=== PATIENT | female | born 1965 | race Asian ===

== ENCOUNTER 2020-04-13 13:43 | Inpatient (IN) | payer OTHER, MEDICAID, SELFPAY ==
[~2020-04-13] VITALS: Ht 160 cm; Wt 66.7 kg
[2020-04-13] VITALS (10 sets, daily range): BP systolic 97–148
--- NOTE | 2020-04-13 13:45 | NUR ---
ER Dr. Mast at bedside examining patient.
--- NOTE | 2020-04-13 14:10 | NUR ---
Patient presented to ER C/O fever Patient BIB BLS from home, A&Ox4, skin pink and warm, denies pain, denies N/V/D. Arrived on 15 LPM nonrebreather mask, increased woek of breathing with respirations equal bilat. placed on laborer operator and pulse-ox monitor. Patient states she has hx of CA
[2020-04-13] MEDS ORDERED: ACETAMINOPHEN 500 MG TABLET PO ONE (14:15)
[2020-04-13 14:18] LABS: BASOPHILS # (AUTO) 0.1 K/uL (0.0-0.2); BASOPHILS % (AUTO) 0.6 % (0.0-2.0); EOSINOPHILS # (AUTO) 0.1 K/uL (0.0-0.4); EOSINOPHILS % (AUTO) 0.8 % (0.0-4.0); HEMATOCRIT 36.1 % (36-48); HEMOGLOBIN 11.9 g/dL (12.0-16.0); LYMPHOCYTES # (AUTO) 0.8 K/uL (1.0-5.5); MEAN CORPUSCULAR HEMOGLOBIN 26 pg (27-31); MEAN CORPUSCULAR HGB CONC 33 % (32-36); MEAN CORPUSCULAR VOLUME 78 fL (79.0-98.0); MONOCYTES # (AUTO) 1.1 K/uL (0.0-1.0); MONOCYTES % (AUTO) 11.2 % (1.7-9.3); NEUTROPHILS % (AUTO) 79.4 % (40.0-70.0); PLATELET COUNT (AUTO) 163 K/uL (130-430); RED BLOOD CELL COUNT(AUTO) 4.66 MIL/uL (4.2-6.2); WHITE BLOOD COUNT (AUTO) 10.1 K/uL (4.8-10.8)
[2020-04-13 14:22] LABS: CALCIUM 8.5 mg/dL (8.4-11.0); CREATININE 0.92 mg/dL (0.55-1.30); POTASSIUM 3.2 mmol/L (3.5-5.1)
[2020-04-13 14:29] LABS: ALBUMIN 2.7 g/dL (3.4-4.8); TOTAL BILIRUBIN 1.4 mg/dL (0.0-1.0)
[2020-04-13 14:38] LABS: C-REACTIVE PROTEIN QUANT 12.8 mg/dL (0-0.5)
[2020-04-13 14:57] LABS: CKMB RELATIVE INDEX 0.1 (0.0-2.9); CREATINE KINASE MB 0.3 ng/mL (0-3.6)
[2020-04-13 15:10] LABS: INR 1.1 (0.8-1.2); PROTHROMBIN TIME 10.8 SECS (9.5-12.5)
[2020-04-13] MEDS ORDERED: cefTRIAXone 1 GM IVPB PREMIX 50 ML IV ONE (15:15)
--- NOTE | 2020-04-13 15:16 | NUR ---
RT Bess RT at bedside
[2020-04-13] MEDS ORDERED: POTASSIUM CHLORIDE 10 MEQ TAB.PRT.SR PO ONE (15:30)
--- NOTE | 2020-04-13 15:54 | NUR ---
Patient will be admitted to care of ICU. Admitted to ICU unit. Will go to room 8. Belongings list completed. Complete and up to date summary report printed. SBAR report to be given at bedside with opportunity for questions.
--- NOTE | 2020-04-13 16:10 | NUR ---
Admitted from ER, patient is awake and alert, shortness of breath on exertion noted. On High flow O2 @ 100%/40 L. by Resp. therapist. Denies pain at this time. scope shows Sinus Tachycardia, initial Vital signs checked and recorded. Patient made comfortable.
--- NOTE | 2020-04-13 16:20 | NUR ---
MD CONSULT: DR. ANETA CORNELL CALLED IN, MADE AWARE OF CONSULT, WILL COME AND SEE PATIENT LATER.
--- NOTE | 2020-04-13 16:28 | NUR ---
CONSULT PULMO. CONSULTING MD: DR. CORNELL SPOKE TO: DIALED: [phone] ORDERED BY: DR. GUO
--- NOTE | 2020-04-13 16:30 | NUR ---
CONSULT ID CONSULTING MD: DR. GEE SPOKE TO: ANDREA DIALED: [phone] ORDERED BY: DR. GUO
[2020-04-13 16:36] LABS: BILIRUBIN,URINE NEGATIVE (NEGATIVE); BLOOD, URINE TRACE (NEGATIVE); CLARITY/URINE CLEAR (CLEAR); COLOR,URINE YELLOW (YELLOW); GLUCOSE,URINE NEGATIVE (NEGATIVE); KETONES,URINE NEGATIVE (NEGATIVE); LEUKOCYTE ESTERASE ,URINE NEGATIVE (NEGATIVE); NITRITE, URINE NEGATIVE (NEGATIVE); PH,URINE 6.5 (5.0-8.0); PROTEIN URINE NEGATIVE (NEGATIVE)
[2020-04-13 16:37] LABS: UROBILINOGEN,URINE 0.2 (0.2-1.0)
[2020-04-13 16:39] LABS: BACTERIA,URINE FEW /HPF (None Seen); MUCUS,URINE None Seen /LPF (None Seen); RBC,URINE 0-3 /HPF (0-3); WBC,URINE 0-3 /HPF (0-3)
[2020-04-13] MEDS ORDERED: ALBUTEROL MDI INHALATION 8 GM INH INH SCH (16:45)
[2020-04-13] MEDS ORDERED: FAMOTIDINE 20 MG TABLET PO ONE (17:00)
[2020-04-13] MEDS ORDERED: AZITHROMYCIN 500 MG in NS 250 ML IV ONE (17:00)
--- NOTE | 2020-04-13 17:00 | NUR ---
RN NOTES PATIENT ASSISTED ON PRONE POSITION.
[2020-04-13] MEDS: KCL 20 mEq in NS 1000 mL 1,000 ML IV SCH (18:00)
--- NOTE | 2020-04-13 18:00 | NUR ---
MD VISIT: DR. BRANT GUO HERE TO SEE PATIENT, WITH ORDERS CARRIED OUT.
--- NOTE | 2020-04-13 18:15 | NUR ---
RN NOTES SPOKE TO THE DAUGHTER, UPDATED ON PATIENT PRESENT CONDITION.
[2020-04-13] MEDS ORDERED: DEXAMETHASONE SOD PHOSPHATE 10 MG/ML VIAL IVP ONE (18:30)
--- NOTE | 2020-04-13 18:30 | NUR ---
RN NOTES APPEARS COMFORTABLE, O2 SAT. 95%
[2020-04-13] MEDS ORDERED: ENOXAPARIN SODIUM 40 MG/0.4 ML SYRINGE SUBCUT ONE (18:45)
--- NOTE | 2020-04-13 19:20 | NUR ---
OPENING NOTE Received SBAR report from off coming RN for continuity of care. Pt laying in bed to her left side. Pt on 40 L O2 via high flow NC with 100% FiO2. KCL 20 mEq infusing @ 100 ml/hr. Will continue to monitor and assess.
[2020-04-13] MEDS: ALBUTEROL SULFATE 0.083% 2.5 MG/3 ML VIAL.NEB INH SCH (20:01)
--- NOTE | 2020-04-13 21:00 | NUR ---
Pt laying in bed, resting on her left side. Pt is a/o x 4 and cooperative. Pt denies any pain but endorses SOB. Pt on 40L via high flow NC with 100% FiO2, oxygen saturations sustained in mid to high 80s. Assisted pt to prone position, she tolerated well. Oxygen saturations increased to 90% after proning. KChl 20 mEq infusing @ 100 ml/hr. Call light within reach, bed locked and in lowest position. Will continue to monitor and assess.
--- NOTE | 2020-04-13 21:30 | NUR ---
FAMILY Spoke with pt's and provided updates.
[2020-04-14] VITALS (26 sets, daily range): BP systolic 96–168
--- NOTE | 2020-04-14 00:30 | NUR ---
Pt laying in bed in the prone position and tolerating well, no s/s of distress noted. Pt denies any pain or discomfort. Oxygen saturations above 90% when pt is prone. Pt' s oxygen saturations fall to low 80's when in the supine position and upon exertion when using the bedpan. Call light within reach. Bed locked and in lowest position, safety precautions in place. Will continue to monitor and assess.
[2020-04-14] MEDS: KCL 20 mEq in NS 1000 mL 1,000 ML IV SCH ×3 (02:45→22:56)
[2020-04-14 05:52] LABS: BASOPHILS % (AUTO) 0.5 % (0.0-2.0); HEMOGLOBIN 12.2 g/dL (12.0-16.0); LYMPHOCYTES # (AUTO) 0.6 K/uL (1.0-5.5); LYMPHOCYTES % (AUTO) 6.7 % (20.5-51.5); MEAN CORPUSCULAR HEMOGLOBIN 26 pg (27-31); MEAN CORPUSCULAR HGB CONC 33 % (32-36); MEAN CORPUSCULAR VOLUME 78 fL (79.0-98.0); MONOCYTES # (AUTO) 0.1 K/uL (0.0-1.0); MONOCYTES % (AUTO) 1.5 % (1.7-9.3); NEUTROPHILS # (AUTO) 8.3 K/uL (1.8-7.7); NEUTROPHILS % (AUTO) 91.3 % (40.0-70.0); PLATELET COUNT (AUTO) 180 K/uL (130-430); RED BLOOD CELL COUNT(AUTO) 4.77 MIL/uL (4.2-6.2); RED CELL DISTRIBUTION WIDTH 19.1 % (9.0-15.0); WHITE BLOOD COUNT (AUTO) 9.1 K/uL (4.8-10.8)
[2020-04-14 07:05] LABS: ALBUMIN 2.5 g/dL (3.4-4.8); BILIRUBIN,DIRECT 0.4 mg/dL (0.0-0.3); CALCIUM 8.4 mg/dL (8.4-11.0); CREATININE 0.7 mg/dL (0.55-1.30); THYROID STIMULATING HORMONE 0.79 uIu/mL (0.36-3.74)
--- NOTE | 2020-04-14 07:31 | NUR ---
CLOSING NOTE Endorsed SBAR report to oncoming RN for continuity of care.
--- NOTE | 2020-04-14 07:34 | NUR ---
Opening Note Received report from endorsing RN. Pt AAOx4, states no distress at this time, currently in prone position on high flow O2 40L 80%. IV site intact, patent, no infiltration noted with IVF in place. No other complaints at this time.
[2020-04-14] MEDS: ALBUTEROL SULFATE 0.083% 2.5 MG/3 ML VIAL.NEB INH SCH ×4 (07:43→20:25)
--- NOTE | 2020-04-14 07:43 | NUR ---
RT NOTES Pt is currently on prone position, titrated o2 to 80% 30L. No adverse reactions noted. will monitor pt. rn made aware
[2020-04-14] MEDS: DEXAMETHASONE SOD PHOSPHATE 10 MG/ML VIAL IVP SCH (08:14)
[2020-04-14] MEDS: ENOXAPARIN SODIUM 40 MG/0.4 ML SYRINGE SUBCUT SCH (08:15)
[2020-04-14 08:19] LABS: C-REACTIVE PROTEIN QUANT 16.7 mg/dL (0-0.5)
--- NOTE | 2020-04-14 08:45 | NUR ---
Nutrition Update Jamal scale 17 noted. Pt admitted for Acute respiratory failure, possible PNA Diet: Full Liquid Diet BMI: 26.2 kg/m2 RD to follow per nutrition care standards.
--- NOTE | 2020-04-14 08:55 | NUR ---
RT NOTES Pt on supine position due to echo study, saturation in the low 60s, rn increased o2 to 100% 40L, minimal improvement noted.
[2020-04-14] MEDS: FAMOTIDINE 20 MG TABLET PO SCH (09:00)
--- NOTE | 2020-04-14 09:00 | NUR ---
Echo being done at bedside.
--- NOTE | 2020-04-14 10:00 | NUR ---
Abdominal ultrasound being done at bedside.
--- NOTE | 2020-04-14 11:40 | NUR ---
RT NOTES Assisted in proning pt, improvement on pt's saturation noted.
--- NOTE | 2020-04-14 12:00 | NUR ---
OSMAN CATH: Pt agreeable to having catheter insertion. # 16 FR Osman catheter with 10 cc bulb inserted with use of sterile technique. Bulb inflated with 10 cc sterile water. Immediate return of yellow/sid urine noted. Bedside drainage bag placed below level of bladder. Pt tolerated procedure well.
--- NOTE | 2020-04-14 14:05 | NUR ---
RT NOTES Pt laying on her right side, with saturation 91%
[2020-04-14] MEDS: AZITHROMYCIN 500 MG in NS 250 ML IV SCH (15:51)
[2020-04-14] MEDS ORDERED: cefTRIAXone 1 GM in D5W 50 ML IV SCH (16:00)
--- NOTE | 2020-04-14 19:04 | NUR ---
Closing Pt currently laying on side. Informed pt to focus on breathing since she was desaturating and cannot tolerate sitting up to have fluids. No other complaints at this time. Endorsed plan of care to RN.
--- NOTE | 2020-04-14 21:45 | NUR ---
PAGED FOR ORDERS DIALED: [phone] SPOKE TO: DR. CORNELL
--- NOTE | 2020-04-14 22:10 | NUR ---
ER MD 2 RTS 2RNS IN PTS RM TO BE INTUBATED DIFFICULTY BREATHING SATS DROPPING PT INTUBATED 7.5 ETT 25 AT THE LIP PT SEDATED WITH ROCURONIUM IV AND ETOMIDATE IV BEFORE INTUBATED SEDATION EFFECTIVE
[2020-04-14] MEDS ORDERED: NOREPINEPHRINE BITARTRATE 4 MG in NS 246 ML IV PRN (22:45)
[2020-04-14] MEDS ORDERED: PROPOFOL DRIP 100 ML IV ONE (22:48)
--- NOTE | 2020-04-14 22:50 | NUR ---
I PAD SET UP FOR FAMILY TO SEEPT INPTS RM FAMILY ADVISED OF INTUBATION AND GAVE PERMISSION FOR PICC LINE INSERTION
[2020-04-14] MEDS: PIPERACILLIN/TAZO 4.5GM/DEX-IS 100 ML IV SCH (22:54)
--- NOTE | 2020-04-14 23:28 | NUR ---
VENT SETTINGS TV 400 FIO2 90% PEEP10 PRVC 28
[2020-04-15] VITALS (30 sets, daily range): BP systolic 97–155
[2020-04-15] MEDS: PROPOFOL DRIP 100 ML IV PRN ×3 (00:49→16:31)
--- NOTE | 2020-04-15 01:10 | NUR ---
RT TO CHECK PT AND VENT
--- NOTE | 2020-04-15 02:30 | NUR ---
CHG RN INCREASED DIPROVAN TO 20 MCG/KG/MIN
--- NOTE | 2020-04-15 04:00 | NUR ---
pt repositioned alert follows commands
[2020-04-15] MEDS: PIPERACILLIN/TAZO 4.5GM/DEX-IS 100 ML IV SCH ×3 (06:00→21:22)
[2020-04-15 06:12] LABS: BASOPHILS % (AUTO) 0.1 % (0.0-2.0); HEMATOCRIT 36.9 % (36-48); HEMOGLOBIN 11.9 g/dL (12.0-16.0); LYMPHOCYTES # (AUTO) 0.9 K/uL (1.0-5.5); LYMPHOCYTES % (AUTO) 5.5 % (20.5-51.5); MEAN CORPUSCULAR HEMOGLOBIN 25 pg (27-31); MEAN CORPUSCULAR HGB CONC 32 % (32-36); MEAN CORPUSCULAR VOLUME 78 fL (79.0-98.0); MONOCYTES # (AUTO) 1.3 K/uL (0.0-1.0); NEUTROPHILS # (AUTO) 14.2 K/uL (1.8-7.7); NEUTROPHILS % (AUTO) 86.4 % (40.0-70.0); PLATELET COUNT (AUTO) 243 K/uL (130-430); RED BLOOD CELL COUNT(AUTO) 4.76 MIL/uL (4.2-6.2); RED CELL DISTRIBUTION WIDTH 18.9 % (9.0-15.0); WHITE BLOOD COUNT (AUTO) 16.4 K/uL (4.8-10.8)
--- NOTE | 2020-04-15 06:27 | NUR ---
RT ADVISED FIO2 80%
[2020-04-15 06:42] LABS: ALBUMIN 2.3 g/dL (3.4-4.8); CALCIUM 8.1 mg/dL (8.4-11.0); CREATININE 0.65 mg/dL (0.55-1.30); POTASSIUM 3.9 mmol/L (3.5-5.1); TOTAL BILIRUBIN 1.1 mg/dL (0.0-1.0)
[2020-04-15 06:47] LABS: PROTHROMBIN TIME 10.7 SECS (9.5-12.5)
[2020-04-15 07:06] LABS: HEPATITIS A AB, IgM Negative (Negative); HEPATITIS B CORE AB, IgM Negative (Negative); HEPATITIS B SURFACE AG Negative (Negative)
--- NOTE | 2020-04-15 07:10 | NUR ---
Opening Note Patient report received via SBAR from endorsing RN
[2020-04-15 08:08] LABS: C-REACTIVE PROTEIN QUANT 6.9 mg/dL (0-0.5)
[2020-04-15] MEDS ORDERED: MORPHINE I.V. DRIP 100 ML IV PRN (08:15)
[2020-04-15] MEDS ORDERED: NALOXONE HCL 0.4 MG/ML AMP (NARCAN) IVP PRN (08:15)
[2020-04-15] MEDS: FAMOTIDINE 20 MG TABLET PO SCH (09:00)
[2020-04-15] MEDS: DEXAMETHASONE SOD PHOSPHATE 10 MG/ML VIAL IVP SCH (09:10)
--- NOTE | 2020-04-15 09:15 | NUR ---
HIGH ALERT NOTE: Called Dr. Wong back at [phone] identified within the medical roster to verify physician authenticity.
--- NOTE | 2020-04-15 09:35 | NUR ---
Nursing Note NG insertion attempted in bilateral nares, unable to advance NG tube and patient became tachypneic and began to cough. NG insertion will be attempted again once patient is stable
--- NOTE | 2020-04-15 09:35 | NUR ---
Witnessed diprivan infusing at 25 mcgs/kg/min.
[2020-04-15] MEDS: ENOXAPARIN SODIUM 40 MG/0.4 ML SYRINGE SUBCUT SCH (09:38)
--- NOTE | 2020-04-15 09:40 | NUR ---
Witnessed diprivan infusing at 30 mcgs/kg/min.
--- NOTE | 2020-04-15 10:00 | NUR ---
Witnessed morphine infusing at 2mg/hr
--- NOTE | 2020-04-15 10:25 | NUR ---
Dietitian Recommendations * If/when medically appropriate, consider Vital High Protein at 50 ml/hr (goal rate), Free Water Flush: 150 ml Q6h via NGT Provides: 1200 kcal/day, 105 gm protein/day, and 1603 ml free water/day Meets: 81% of estimated protein needs and 94 of upper end of estimated protein needs LP, RD Please refer to Nutrition Assessment for details. Addendum: 04/15/20 at [address] Amended: Links added. Addendum: 04/15/20 at [address] CORRECTION: 94% of upper end of estimated protein needs
--- NOTE | 2020-04-15 10:30 | NUR ---
Witnessed morphine drup infusing at 2.5mg/hr
--- NOTE | 2020-04-15 11:00 | NUR ---
Witnessed morphine drip infusing at 3 mg/hr
--- NOTE | 2020-04-15 11:05 | NUR ---
Witnessed diprivan infusing at 35 mcgs/kg/min
--- NOTE | 2020-04-15 11:30 | NUR ---
NG TUBE PLACEMENT: # 16 FR NG tube placed to right nare. Placement checked by auscultation of instilled air into stomach and aspiration of gastric contents. Tubing taped in place to prevent dislodging. Patient tolerated well.
[2020-04-15] MEDS ORDERED: ROCURONIUM BROMIDE 10 MG/ML (ZEMURON) IV ONE (11:34)
[2020-04-15] MEDS ORDERED: ETOMIDATE 20 MG/ 10 ML VIAL (AMIDATE) IVP ONE (11:34)
--- NOTE | 2020-04-15 11:40 | NUR ---
MD ROUND Dr. Dawn in to see patient, physician to enter orders
[2020-04-15] MEDS ORDERED: FAMOTIDINE PF 20 MG/2 ML VIAL IVP ONE ×2 (11:45→12:15)
--- NOTE | 2020-04-15 11:50 | NUR ---
Nursing Note Patient's bed connected to low air loss machine and turned on, patient repositioned in bed, linens changed
--- NOTE | 2020-04-15 12:00 | NUR ---
Witnessed diprivan infusing at 35 mcgs/kg/min Addendum: 04/15/20 at 1816 by Jessica Vora RN Witnessed diprivan infusing at 40 mcgs/kg/min
--- NOTE | 2020-04-15 12:40 | NUR ---
MD JACKSON Recinos in to see patient, physician entered orders Addendum: 04/15/20 at 1347 by Jackson Bedolla RN Disregard, entered incorrectly
--- NOTE | 2020-04-15 13:00 | NUR ---
Nursing Note PICC nurse in to see patient, PICC inserted and length adjusted to right upper arm by PICC nurse, okay to use per chest x-ay
--- NOTE | 2020-04-15 13:10 | NUR ---
Witnessed diprivan infusing at 30 mcgs/kg/min
--- NOTE | 2020-04-15 13:20 | NUR ---
ROUND Dr. Wong in to see patient, new orders entered
--- NOTE | 2020-04-15 13:24 | NUR ---
PICC Pull Back Received cxr report from radiologist with orders to pull back PICC. Per Olive, PICC line nurse, she pulled picc back already. Dr. Marvin queen and he looked at cxr and told olive that the line was in good position. No further pull back done.
[2020-04-15 14:32] LABS: FERRITIN 207 ng/mL (15-150)
[2020-04-15] MEDS: AZITHROMYCIN 500 MG in NS 250 ML IV SCH (14:33)
--- NOTE | 2020-04-15 15:00 | NUR ---
Witnessed diprivan infusing at 25 mcgs/kg/min
--- NOTE | 2020-04-15 15:30 | NUR ---
Witnessed diprivan infusing at 20 mcgs/kg/min
--- NOTE | 2020-04-15 16:00 | NUR ---
Witnessed morphine drip infusing at 2.5 mg/hr
[2020-04-15] MEDS: ALBUTEROL SULFATE 0.083% 2.5 MG/3 ML VIAL.NEB INH SCH ×3 (16:30→19:00)
--- NOTE | 2020-04-15 16:30 | NUR ---
Witnessed morphine drip infusing at 2 mg/hr
--- NOTE | 2020-04-15 19:08 | NUR ---
CLOSING NOTE Patient report given to nightshift RN via SBAR
--- NOTE | 2020-04-15 19:30 | NUR ---
Opening note: Report received from day RN. Assuming care now.
[2020-04-15] MEDS: DOCUSATE SODIUM 100 MG/10 ML UDC PO SCH (21:22)
[2020-04-16] VITALS (31 sets, daily range): BP systolic 116–156
[2020-04-16] MEDS: PROPOFOL DRIP 100 ML IV PRN ×2 (06:01→17:20)
[2020-04-16] MEDS: PIPERACILLIN/TAZO 4.5GM/DEX-IS 100 ML IV SCH ×3 (06:05→21:19)
[2020-04-16 06:22] LABS: BASOPHILS % (AUTO) 0.1 % (0.0-2.0); HEMATOCRIT 34.6 % (36-48); HEMOGLOBIN 11.4 g/dL (12.0-16.0); LYMPHOCYTES # (AUTO) 0.9 K/uL (1.0-5.5); LYMPHOCYTES % (AUTO) 8.5 % (20.5-51.5); MEAN CORPUSCULAR HEMOGLOBIN 26 pg (27-31); MEAN CORPUSCULAR HGB CONC 33 % (32-36); MEAN CORPUSCULAR VOLUME 78 fL (79.0-98.0); MONOCYTES # (AUTO) 0.4 K/uL (0.0-1.0); MONOCYTES % (AUTO) 3.8 % (1.7-9.3); NEUTROPHILS # (AUTO) 9.1 K/uL (1.8-7.7); NEUTROPHILS % (AUTO) 87.6 % (40.0-70.0); PLATELET COUNT (AUTO) 214 K/uL (130-430); RED BLOOD CELL COUNT(AUTO) 4.43 MIL/uL (4.2-6.2); WHITE BLOOD COUNT (AUTO) 10.3 K/uL (4.8-10.8)
[2020-04-16 07:01] LABS: ALBUMIN 2.2 g/dL (3.4-4.8); CREATININE 0.66 mg/dL (0.55-1.30); POTASSIUM 3.6 mmol/L (3.5-5.1); TOTAL BILIRUBIN 0.7 mg/dL (0.0-1.0)
[2020-04-16 07:02] LABS: C-REACTIVE PROTEIN QUANT 3.9 mg/dL (0-0.5)
--- NOTE | 2020-04-16 07:30 | NUR ---
Received report for assumption of care. Pt comfortable on PRVC28/400/50%/p10. Diprivan at 20 mcgs and Morphine at 2 mg/hr via LUE PICC. No IVF at this time. NG tube right nare and tolerating tube feeds at 40 cc/hr. No residual. Restraints in use to prevent pt from pulling at ET or NGT. Observed pt to put hand on tubes. Hernandez cath with sid urine in bag. SR on monitor. Pt has a port a a cath to right chest. Pt has a 20g PIV to left AC. Call juarez in reach and pt visable on camera.
[2020-04-16] MEDS: DOCUSATE SODIUM 100 MG/10 ML UDC PO SCH ×2 (09:39→21:18)
[2020-04-16] MEDS: ENOXAPARIN SODIUM 40 MG/0.4 ML SYRINGE SUBCUT SCH (09:39)
[2020-04-16] MEDS: FAMOTIDINE PF 20 MG/2 ML VIAL IVP SCH (09:42)
[2020-04-16] MEDS: DEXAMETHASONE SOD PHOSPHATE 10 MG/ML VIAL IVP SCH (09:43)
--- NOTE | 2020-04-16 10:30 | NUR ---
Pt repositioned in bed to left side with pillow supports. HOB up. Tolerating tube feedings. VSS, SR on monitor.
--- NOTE | 2020-04-16 14:00 | NUR ---
Dr. Dawn in to see pt. Spoke with pts daughter [employer] on the phone. All questions answered.
[2020-04-16] MEDS: AZITHROMYCIN 500 MG in NS 250 ML IV SCH (14:31)
--- NOTE | 2020-04-16 15:07 | NUR ---
Pt transferred to a new low air loss mattress bed. Remains comfortable on Diprivan at 20 mcgs and morphine at 2mg/hr. Tolerating current vent settings without distress.
[2020-04-16] MEDS: ALBUTEROL SULFATE 0.083% 2.5 MG/3 ML VIAL.NEB INH SCH ×3 (15:24→19:46)
--- NOTE | 2020-04-16 16:30 | NUR ---
Dr Wong in to see pt. Vent chagnesmade by him to PRVC 18/500/50%/p8. Will monitor for distress.
--- NOTE | 2020-04-16 19:20 | NUR ---
Report given to oncoming staff to assume care of the pt.
--- NOTE | 2020-04-16 19:30 | NUR ---
Opening note: Report received from previous RN. Assuming care now.
--- NOTE | 2020-04-16 20:35 | NUR ---
RT NOTES [address] Wong, titrate PEEP to 5 as tolerated. Titrated PEEP to 5, pt saturation 95-96%. HR 65. no resp distress noted. pt tolerating vent changes well. RN Alfred aware. will continue to monitor pt.
[2020-04-17] VITALS (33 sets, daily range): BP systolic 84–196
[2020-04-17] MEDS: PROPOFOL DRIP 100 ML IV PRN ×2 (04:32→15:30)
[2020-04-17] MEDS: MORPHINE I.V. DRIP 100 ML IV PRN (04:33)
[2020-04-17] MEDS: PIPERACILLIN/TAZO 4.5GM/DEX-IS 100 ML IV SCH ×3 (06:00→21:23)
--- NOTE | 2020-04-17 06:45 | NUR ---
DRIPS I witnessed Alfred GAGNON change Diprivan drip rate to 5mcg/Kg/min. I witnessed Alfred GAGNON stop Morphine drip.
[2020-04-17 06:59] LABS: BASOPHILS % (AUTO) 0.1 % (0.0-2.0); HEMATOCRIT 35.9 % (36-48); HEMOGLOBIN 11.6 g/dL (12.0-16.0); LYMPHOCYTES # (AUTO) 0.9 K/uL (1.0-5.5); MEAN CORPUSCULAR HEMOGLOBIN 25 pg (27-31); MEAN CORPUSCULAR HGB CONC 32 % (32-36); MEAN CORPUSCULAR VOLUME 78 fL (79.0-98.0); MONOCYTES # (AUTO) 0.6 K/uL (0.0-1.0); MONOCYTES % (AUTO) 5.1 % (1.7-9.3); NEUTROPHILS # (AUTO) 9.8 K/uL (1.8-7.7); NEUTROPHILS % (AUTO) 86.8 % (40.0-70.0); PLATELET COUNT (AUTO) 224 K/uL (130-430); RED BLOOD CELL COUNT(AUTO) 4.62 MIL/uL (4.2-6.2); WHITE BLOOD COUNT (AUTO) 11.3 K/uL (4.8-10.8)
--- NOTE | 2020-04-17 07:20 | NUR ---
Received patient and endorsed report from [facility] shift nurse. Patient in bed sleeping with side rails x 3 up. Call light with in reach.
--- NOTE | 2020-04-17 07:30 | NUR ---
MD Wong at bedside assessing patient.
[2020-04-17 07:45] LABS: ALBUMIN 2.2 g/dL (3.4-4.8); CALCIUM 8.1 mg/dL (8.4-11.0); CREATININE 0.57 mg/dL (0.55-1.30); POTASSIUM 3.5 mmol/L (3.5-5.1); TOTAL BILIRUBIN 0.5 mg/dL (0.0-1.0)
--- NOTE | 2020-04-17 08:00 | NUR ---
Md Wong stated patient started weaning trail. Addendum: 04/17/20 at 0834 by Ju Navarro RN note correction-CPAP of 5, PS of 8.
[2020-04-17 08:12] LABS: C-REACTIVE PROTEIN QUANT 2.3 mg/dL (0-0.5)
[2020-04-17] MEDS: DOCUSATE SODIUM 100 MG/10 ML UDC PO SCH ×2 (08:26→21:23)
--- NOTE | 2020-04-17 08:26 | NUR ---
At approximately 0810, patient sat up, pulled of restraints, and pulled NGT completely out with intubation tube partially out. RT and MD Wong paged to come bedside. MD Wong ordered for patient to try off intubation with 100% oxygen on hi-flow, RT followed orders. Md Wong ordered diprivan to be turned off, follow orders. Educated patient on importance to stay in bed, patient shook head yes. Addendum: 04/17/20 at 0834 by Ju Navarro RN note correction-patient placed on nonrebreather mask 100% 15 liters.
[2020-04-17] MEDS: ALBUTEROL SULFATE 0.083% 2.5 MG/3 ML VIAL.NEB INH SCH ×3 (08:27→15:53)
--- NOTE | 2020-04-17 08:27 | NUR ---
RT NOTES FOUND PATIENT SELF EXTUBATED RN AT BEDSIDE. PLACED ON NON REBREATHER PATIENT DENIED SOB. NO STRIDOR NOTED. NO DISTRESS NOTED. HHN GIVEN WILL CONTINUE TO MONITOR PATIENT. DR CORNELL AT BEDSIDE.
[2020-04-17] MEDS: DEXAMETHASONE SOD PHOSPHATE 10 MG/ML VIAL IVP SCH (09:45)
[2020-04-17] MEDS: FAMOTIDINE PF 20 MG/2 ML VIAL IVP SCH (09:45)
[2020-04-17] MEDS: ENOXAPARIN SODIUM 40 MG/0.4 ML SYRINGE SUBCUT SCH (09:45)
--- NOTE | 2020-04-17 10:20 | NUR ---
Patient stated wants to be reintubated again even with 02 saturation at 97 with respirations of 28, RT at bedside and MD Wong paged.
--- NOTE | 2020-04-17 10:30 | NUR ---
RT NOTES PATIENT WAS RE-INTUBATED BY DR. CORNELL. WITH 7.5 ETT SECURED AT 25cm AT THE LIP. BILATERAL BREATH SOUNDS AND BILATERAL CHEST RISE NOTED. CO2 DETECTOR CHANGED YELLOW. MIST NOTED ON ETT. PLACED PATIENT BACK ON VENT PRVC 18 400 100% +5. PER DR. CORNELL. VENT ALARMS ARE SET AND AUDIBLE. WILL CONTINUE TO MONITOR PATIENT. WILL DRAW ABG. SPUTUM COLLECTED ENDORSED TO LAB.
--- NOTE | 2020-04-17 10:35 | NUR ---
Witnessed RN titrate diprivan to 10 mcg.
--- NOTE | 2020-04-17 10:40 | NUR ---
Witnessed RN titrate diprivan to 15 mcg.
--- NOTE | 2020-04-17 10:45 | NUR ---
Witnessed RN titrate diprivan to 20 mcg.
--- NOTE | 2020-04-17 10:50 | NUR ---
Witnessed RN titrate diprivan to 25 mcg.
--- NOTE | 2020-04-17 11:00 | NUR ---
Witnessed RN titrate Morphine to 1.5mg.
--- NOTE | 2020-04-17 11:18 | NUR ---
At approximately 1030, patient was reintubated with MD Wong and RT at bedside after 50 mg Rocuronium was given IVP as ordered by MD Wong. Md Wong ordered patient to be placed back on Morphine and Diprivan drip, restraints may be renewed, NGT may be placed back in. Placed NGT back. X-ray performed. Intubation tube size 7.5 with Lipline 25. Addendum: 04/17/20 at 1129 by Ju Navarro RN EXTRA NOTE-Vent settings PRVC rate of 18, TV of 400, 100% Fi02, peep of 5.
--- NOTE | 2020-04-17 11:26 | NUR ---
Updated daughter Rocio Chan and on reintubation of patient, requested to face time mom. Scheduled facetime at 1500.
--- NOTE | 2020-04-17 11:30 | NUR ---
Witnessed RN titrate Morphine to 2 mg.
[2020-04-17] MEDS ORDERED: ROCURONIUM BROMIDE 10 MG/ML (ZEMURON) IV ONE (12:02)
[2020-04-17] MEDS: AZITHROMYCIN 500 MG in NS 250 ML IV SCH (14:00)
--- NOTE | 2020-04-17 16:30 | NUR ---
Daughter Rocio Chan and on face time with patient.
--- NOTE | 2020-04-17 17:00 | NUR ---
Nutrition F/U RD reviewed pt's current EMR record including diet Hx, physician notes, nursing notes, pertinent labs/meds/procedures, care trends, and care activity. Admission Dx: Acute respiratory failure, possible pneumonia PMH: stage 4 metastatic breast CA per physician notes Pt also found w/ severe malnutrition per physician notes SARS-CoV-2 Ag (Rapid) Negative 04/13 SARS-CoV2 (PCR) Pending 04/13 & 04/15 Current Diet Order/Nutrition Support: Vital High Protein at 50 ml/hr, Free Water Flush: 150 ml Q6h via NGT x2 days Subjective Info: RD bedside visit deferred d/t isolation precautions and PPE conservation efforts. RD spoke w/ pt's primary RN via phone call. RN reported that pt's OGT was re-inserted today as pt self-extubated this morning, but was re-intubated and back on the vent. RN reported that pt has been tolerating TF well, and has not yet had a BM today. Current TF regimen continues adequate/appropriate. Pertinent Medications: morphine, propofol at 8.05 ml/hr (231 kcal/day), piperacillin/tazobactam IV Pertinent Labs: BG 116 H, WBC 11.3 H, AST 72 H, ALT 70 WNL (improved), ALP 250 H, ALB 2.2 L Skin Integrity Comment: Jamal scale: 14; no skin issues noted Estimated Energy Expenditure (kcals/day) 1489 kcal/day (PSU 2002b d/t critical illness on vent support) Estimated Protein Required (g/day) 67-112 gm/day (1.2-2 gm/kg Adj IBW for CA, acute state, vent support) Estimated Fluid Required (l/day) 1.5 L/day (1 ml/kcal/day for maintenance) Problem/Etiology/Signs/Symptoms Suboptimal nutritional intakes related to metabolic demands as evidenced by NPO status and inability to meet nutritional requirements. *improved w/ active EN support order Expected Outcomes/Goals - Monitor provision of nutrition support w/ goal of pt meeting at least 80% of estimated nutritional needs, labs trending WNL, normal GI function, and skin integrity/wt maintenance Dietitian Recommendations * Recommend continuing Vital High Protein at 50 ml/hr, Free Water Flush: 150 ml Q6h via NGT Provides: 1200 kcal/day, 105 gm protein/day, and 1603 ml free water/day Meets: 81% of estimated protein needs and 94% of upper end of estimated protein needs Follow Up High Risk: F/U in 2-3 days
--- NOTE | 2020-04-17 17:05 | NUR ---
Dietitian Recommendations * Recommend continuing Vital High Protein at 50 ml/hr, Free Water Flush: 150 ml Q6h via NGT Provides: 1200 kcal/day, 105 gm protein/day, and 1603 ml free water/day Meets: 81% of estimated protein needs and 94% of upper end of estimated protein needs LP, RD Please refer to Nutrition F/U for details.
--- NOTE | 2020-04-17 19:20 | NUR ---
Endorsed patient to NOC shift nurse. Patient in bed sleeping with side rails x 3 up. Call light with in reach.
--- NOTE | 2020-04-17 19:47 | NUR ---
Opening note: Report received from day RN. Assuming care now.
--- NOTE | 2020-04-17 23:00 | NUR ---
Patient attempting to get out of bed, diprivan increased to 30mcg/kg/min.
--- NOTE | 2020-04-17 23:00 | NUR ---
sandy meyers RN titrate diprivan to 30 mcg/kg/min.
[2020-04-18] VITALS (36 sets, daily range): BP systolic 90–180
[2020-04-18] MEDS: PROPOFOL DRIP 100 ML IV PRN ×3 (05:34→20:03)
[2020-04-18] MEDS: PIPERACILLIN/TAZO 4.5GM/DEX-IS 100 ML IV SCH ×3 (06:25→22:00)
[2020-04-18 06:58] LABS: BASOPHILS % (AUTO) 0.3 % (0.0-2.0); EOSINOPHILS # (AUTO) 0.1 K/uL (0.0-0.4); EOSINOPHILS % (AUTO) 0.8 % (0.0-4.0); HEMATOCRIT 35.6 % (36-48); HEMOGLOBIN 11.3 g/dL (12.0-16.0); LYMPHOCYTES # (AUTO) 1.6 K/uL (1.0-5.5); LYMPHOCYTES % (AUTO) 10.1 % (20.5-51.5); MEAN CORPUSCULAR HEMOGLOBIN 25 pg (27-31); MEAN CORPUSCULAR HGB CONC 32 % (32-36); MEAN CORPUSCULAR VOLUME 78 fL (79.0-98.0); MONOCYTES # (AUTO) 0.9 K/uL (0.0-1.0); MONOCYTES % (AUTO) 5.5 % (1.7-9.3); NEUTROPHILS # (AUTO) 13.1 K/uL (1.8-7.7); NEUTROPHILS % (AUTO) 83.3 % (40.0-70.0); PLATELET COUNT (AUTO) 238 K/uL (130-430); RED BLOOD CELL COUNT(AUTO) 4.55 MIL/uL (4.2-6.2); RED CELL DISTRIBUTION WIDTH 19.7 % (9.0-15.0); WHITE BLOOD COUNT (AUTO) 15.7 K/uL (4.8-10.8)
[2020-04-18 07:09] LABS: ALBUMIN 2.1 g/dL (3.4-4.8); C-REACTIVE PROTEIN QUANT 3.8 mg/dL (0-0.5); CALCIUM 8.4 mg/dL (8.4-11.0); CREATININE 0.59 mg/dL (0.55-1.30); POTASSIUM 3.5 mmol/L (3.5-5.1); TOTAL BILIRUBIN 0.8 mg/dL (0.0-1.0)
--- NOTE | 2020-04-18 07:20 | NUR ---
Patient received from [facility] shift nurse. Patient in bed with side rails x 3 up. Call light with in reach.
[2020-04-18] MEDS: ALBUTEROL SULFATE 0.083% 2.5 MG/3 ML VIAL.NEB INH SCH ×4 (07:45→19:59)
--- NOTE | 2020-04-18 07:54 | NUR ---
RT NOTES Vent settings to PEEP [address] Wong's order. Will monitor pt.
[2020-04-18] MEDS: FAMOTIDINE PF 20 MG/2 ML VIAL IVP SCH (09:23)
[2020-04-18] MEDS: DOCUSATE SODIUM 100 MG/10 ML UDC PO SCH ×2 (09:23→20:04)
[2020-04-18] MEDS: ENOXAPARIN SODIUM 40 MG/0.4 ML SYRINGE SUBCUT SCH (09:24)
[2020-04-18] MEDS: DEXAMETHASONE SOD PHOSPHATE 10 MG/ML VIAL IVP SCH (09:24)
[2020-04-18] MEDS: ACETAMINOPHEN 650 MG SUPP.RECT RC PRN ×2 (09:30→15:30)
[2020-04-18] MEDS: AZITHROMYCIN 500 MG in NS 250 ML IV SCH (13:30)
--- NOTE | 2020-04-18 18:10 | NUR ---
RT NOTES 1810- AM RT PUT PT ON 100% FIO2 DUE TO PT DESATURATION. Addendum: 04/19/20 at 0353 by Carmenza Aparicio RT EMELY TOVAR
--- NOTE | 2020-04-18 19:48 | NUR ---
Endorsed patient and gave report to NOC shift nurse. Patient in bed with side rails x 3 up. Call light with in reach.
--- NOTE | 2020-04-18 19:48 | NUR ---
Pt report received. Pt resting calmly, ETT at 7.5, 25 to lip. Settings: PRVC, 18, 400, 100%, 8. OGT secure with Vital High Protein at 50 mL/hr. LUE PICC with Diprivan at 30 mcg/kg/min and Morphine at 2 mg/hr. F/C secure draining yellow urine. Bilat soft wrist restraints in place. VSS at this time.
--- NOTE | 2020-04-18 20:26 | NUR ---
Pt restless and moving extremities. Bilat soft wrist restraints remain in place. Ativan 1 mg given.
--- NOTE | 2020-04-18 21:04 | NUR ---
PROPOFOL DRIP I witness Ashok RN change Propofol drip rate to 35 mcg/KG/min.
--- NOTE | 2020-04-18 21:45 | NUR ---
MORPHINE DRIP I witnessed Ashok GAGNON change Morphine drip to 2.5mg/HR.
--- NOTE | 2020-04-18 21:45 | NUR ---
NGT partially out. Feeding turned off and NGT repositioned. Placement confirmed with air bolus and auscultation.
--- NOTE | 2020-04-18 21:45 | NUR ---
PROPOFOL DRIP I witness Ashok RN change Propofol drip rate to 40 mcg/KG/min.
--- NOTE | 2020-04-18 22:00 | NUR ---
75 mL residual brown gastric contents. OGT remains secure and feedings resumed at 50 mL/hr.
--- NOTE | 2020-04-18 23:00 | NUR ---
PROPOFOL DRIP I witness Ashok RN change Propofol drip rate to 35 mcg/KG/min.
--- NOTE | 2020-04-18 23:15 | NUR ---
Pts daugter face timing pt.
[2020-04-19] VITALS (36 sets, daily range): BP systolic 81–189
--- NOTE | 2020-04-19 | NUR ---
PROPOFOL DRIP I witness Ashok RN change Propofol drip rate to 30 mcg/KG/min.
--- NOTE | 2020-04-19 01:24 | NUR ---
RT NOTES 0124 DECREASED FIO2 TO 90%, SATURATION AT 99%. HR 71. NO RESP DISTRESS NOTED. RN ESTEPHANIE AWARE. WILL CONTINUE TO MONITOR PT.
--- NOTE | 2020-04-19 03:47 | NUR ---
SPO2 100%. FiO2 decreased to 80% per RT.
--- NOTE | 2020-04-19 03:50 | NUR ---
RT NOTES 0350 TITRATED PT FIO2 TO 80%, SATURATION AT 97%. NO RESP DISTRESS NOTED. HEAD TENNIS COACH BERNADETTE AWARE. WILL CONTINUE TO MONITOR PT.
[2020-04-19] MEDS: PROPOFOL DRIP 100 ML IV PRN ×2 (04:48→22:13)
--- NOTE | 2020-04-19 04:48 | NUR ---
WITNESS KALIN HUMMEL HANG NEW BOTTLE OF PROPOFOL.
--- NOTE | 2020-04-19 06:08 | NUR ---
MORPHINE DRIP I witnessed Ashok GAGNON change Morphine drip to 3mg/HR.
[2020-04-19 06:40] LABS: BASOPHILS # (AUTO) 0.1 K/uL (0.0-0.2); BASOPHILS % (AUTO) 0.5 % (0.0-2.0); EOSINOPHILS # (AUTO) 0.1 K/uL (0.0-0.4); EOSINOPHILS % (AUTO) 0.9 % (0.0-4.0); HEMATOCRIT 33.4 % (36-48); HEMOGLOBIN 10.9 g/dL (12.0-16.0); LYMPHOCYTES # (AUTO) 1.2 K/uL (1.0-5.5); LYMPHOCYTES % (AUTO) 8.4 % (20.5-51.5); MEAN CORPUSCULAR HEMOGLOBIN 26 pg (27-31); MEAN CORPUSCULAR HGB CONC 33 % (32-36); MEAN CORPUSCULAR VOLUME 78 fL (79.0-98.0); MONOCYTES # (AUTO) 0.8 K/uL (0.0-1.0); MONOCYTES % (AUTO) 5.2 % (1.7-9.3); NEUTROPHILS # (AUTO) 12.4 K/uL (1.8-7.7); PLATELET COUNT (AUTO) 250 K/uL (130-430); RED BLOOD CELL COUNT(AUTO) 4.29 MIL/uL (4.2-6.2); RED CELL DISTRIBUTION WIDTH 19.4 % (9.0-15.0); WHITE BLOOD COUNT (AUTO) 14.6 K/uL (4.8-10.8)
--- NOTE | 2020-04-19 07:00 | NUR ---
WITNESSED KALNI HUMMEL HAND A NEW BAG OF MORPHINE.
[2020-04-19] MEDS: MORPHINE I.V. DRIP 100 ML IV PRN (07:15)
[2020-04-19] MEDS: PIPERACILLIN/TAZO 4.5GM/DEX-IS 100 ML IV SCH ×2 (07:17→18:46)
--- NOTE | 2020-04-19 07:25 | NUR ---
Pt report given to KALIN Gutierrez.
[2020-04-19] MEDS: ALBUTEROL SULFATE 0.083% 2.5 MG/3 ML VIAL.NEB INH SCH ×4 (07:30→19:30)
--- NOTE | 2020-04-19 07:30 | NUR ---
Received pt in distress with RR 28 02 sats 80's and HR 101. Diprivan at 35 mcgs and increased to 40 mcgs. Morphine infusing at 3 mg/hr. ET to vent on PRVC 18/400/80%p8. Minimal secretions suctioned from ET or mouth. ST on monitor. Right upper arm PICC with IVF 75cc/hr morphine and diprivan.. NG tube with tube feeds at 50 cc/hr and tolerating. Hernandez with dark sid urine in bag. Restraints in use as pt self extubated a few days ago.
[2020-04-19 07:56] LABS: ALBUMIN 2.1 g/dL (3.4-4.8); CALCIUM 8.1 mg/dL (8.4-11.0); CREATININE 0.54 mg/dL (0.55-1.30); POTASSIUM 3.8 mmol/L (3.5-5.1); TOTAL BILIRUBIN 0.8 mg/dL (0.0-1.0)
[2020-04-19] MEDS: DEXAMETHASONE SOD PHOSPHATE 10 MG/ML VIAL IVP SCH (11:40)
[2020-04-19] MEDS: DOCUSATE SODIUM 100 MG/10 ML UDC PO SCH ×2 (11:40→20:57)
[2020-04-19] MEDS: FAMOTIDINE PF 20 MG/2 ML VIAL IVP SCH (11:40)
[2020-04-19] MEDS: ENOXAPARIN SODIUM 40 MG/0.4 ML SYRINGE SUBCUT SCH (11:41)
[2020-04-19] MEDS ORDERED: NOREPINEPHRINE 4 MG/4 ML VIAL IV ONE (11:46)
--- NOTE | 2020-04-19 13:30 | NUR ---
TITRATED FIO2 DOWN TO 70%. SPO2 97%, HR 83.
--- NOTE | 2020-04-19 14:40 | NUR ---
Levophed turned off. BP 145/76. HR 91, RR 24. Diprivan at 40mcgs and morphine at 2 mg/hr. Will watch for distress.
[2020-04-19] MEDS: MICAFUNGIN SODIUM 100 MG in NS 100 ML IV SCH (18:46)
--- NOTE | 2020-04-19 19:30 | NUR ---
Pt report received. Pt resting quielty, even respirations, ETT 7.5, 25 to lip. Vent settings: PRVC, 18, 400, 70%, 8. OGT secure with Vital High Protein at 50 mL/hr. LUE PICC patent and secure with Diprivan at 40 mcg/kg/min, Morphine at 2 mg/hr, and NS at 3 mL/hr all infusing without difficulty or s/s infiltration. F/C secure draining sid colored urine. Bilat wrist restraints in place. VSS, NAD.
[2020-04-20] VITALS (31 sets, daily range): BP systolic 84–166
--- NOTE | 2020-04-20 | NUR ---
Pt resting calmly, VSS, NAD.
--- NOTE | 2020-04-20 04:00 | NUR ---
Pt reposition and skin feels hot to touch. Rectal Temp 100.4. Tylenol 650 mg Supp. given WI.
[2020-04-20] MEDS: ACETAMINOPHEN 650 MG SUPP.RECT RC PRN ×2 (04:04→06:49)
[2020-04-20] MEDS: PROPOFOL DRIP 100 ML IV PRN ×4 (04:07→18:27)
[2020-04-20 06:35] LABS: BASOPHILS # (AUTO) 0.1 K/uL (0.0-0.2); BASOPHILS % (AUTO) 0.4 % (0.0-2.0); EOSINOPHILS # (AUTO) 0.3 K/uL (0.0-0.4); EOSINOPHILS % (AUTO) 1.9 % (0.0-4.0); HEMATOCRIT 34.2 % (36-48); LYMPHOCYTES # (AUTO) 1.4 K/uL (1.0-5.5); LYMPHOCYTES % (AUTO) 8.7 % (20.5-51.5); MEAN CORPUSCULAR HEMOGLOBIN 25 pg (27-31); MEAN CORPUSCULAR HGB CONC 32 % (32-36); MEAN CORPUSCULAR VOLUME 79 fL (79.0-98.0); MONOCYTES # (AUTO) 0.7 K/uL (0.0-1.0); MONOCYTES % (AUTO) 4.7 % (1.7-9.3); NEUTROPHILS # (AUTO) 13.3 K/uL (1.8-7.7); NEUTROPHILS % (AUTO) 84.3 % (40.0-70.0); PLATELET COUNT (AUTO) 232 K/uL (130-430); RED BLOOD CELL COUNT(AUTO) 4.35 MIL/uL (4.2-6.2); RED CELL DISTRIBUTION WIDTH 19.4 % (9.0-15.0); WHITE BLOOD COUNT (AUTO) 15.8 K/uL (4.8-10.8)
[2020-04-20] MEDS: PIPERACILLIN/TAZO 4.5GM/DEX-IS 100 ML IV SCH ×4 (06:48→21:39)
[2020-04-20 07:08] LABS: ALBUMIN 1.9 g/dL (3.4-4.8); CALCIUM 8.2 mg/dL (8.4-11.0); CREATININE 0.6 mg/dL (0.55-1.30); POTASSIUM 3.6 mmol/L (3.5-5.1); TOTAL BILIRUBIN 0.7 mg/dL (0.0-1.0)
--- NOTE | 2020-04-20 07:15 | NUR ---
Pt resting quietly. No changes in vent settings this shift. OGT feedings Vital High Protein continues to run at 50 mL/hr without difficulty. LUE PICC secure and patent with Diprivan at 40 mcg/kg/min, Morphine at 2 mg/hr, and NS at 3 mL/hr. Pt had a brown smear of a BM with total U/O 900 mL this shift. DEL, ADDISON. Report given to Brenda GAGNON. Addendum: 04/20/20 at 0758 by Milind Castañeda RN Bilat wrist restraints remain in place.
--- NOTE | 2020-04-20 07:30 | NUR ---
Received report to assume care of the patient, Pt comfortable on current vent settings and sedation infusing. No distress. VSS. SR on monitor.
[2020-04-20] MEDS: ENOXAPARIN SODIUM 40 MG/0.4 ML SYRINGE SUBCUT SCH (08:26)
[2020-04-20] MEDS: FAMOTIDINE PF 20 MG/2 ML VIAL IVP SCH (08:27)
[2020-04-20] MEDS: DOCUSATE SODIUM 100 MG/10 ML UDC PO SCH ×2 (08:27→21:19)
[2020-04-20] MEDS: DEXAMETHASONE SOD PHOSPHATE 10 MG/ML VIAL IVP SCH (08:27)
--- NOTE | 2020-04-20 10:07 | NUR ---
Nutrition F/U RD reviewed pt's current EMR record including diet Hx, physician notes, nursing notes, pertinent labs/meds/procedures, care trends, and care activity. Admission Dx: Acute respiratory failure, possible pneumonia PMH: stage 4 metastatic breast CA per physician notes Pt also found w/ severe malnutrition per physician notes SARS-CoV-2 Ag (Rapid) Negative 04/13 SARS-CoV2 (PCR) Negative 04/13 & 04/15 Current Diet Order/Nutrition Support: Vital High Protein at 50 ml/hr, Free Water Flush: 150 ml Q6h via NGT x2 days Subjective Info: Pt now w/ Covid PCR Negative x 2 and d/c PUI isolation per MD note. Remains sedated and on vent. RD visit deferred this time d/t pt remains in ICU and for conservation efforts of PPE. Per RN note this morning, pt infusing propofol at 40 mcg/kg/min (16 ml/hr = 845 kcal) and pt tolerating TF at goal rate w/o difficulty. Minimal residuals noted for today per EMR. Curretn TF regimen continues to be adequate and appropriate. Pertinent Medications: morphine, propofol at 16.0 ml/hr (845 kcal/day), piperacillin/tazobactam IV Pertinent Labs: BG 101 H (trending down), WBC 15.8 H, AST 103 H, ALT 95 H, ALP 250 H, ALB 1.9 L Skin Integrity Comment: Jamal scale: 14; no skin issues noted Estimated Energy Expenditure (kcals/day) 1489 kcal/day (PSU 2002b d/t critical illness on vent support) Estimated Protein Required (g/day) 67-112 gm/day (1.2-2 gm/kg Adj IBW for CA, acute state, vent support) Estimated Fluid Required (l/day) 1.5 L/day (1 ml/kcal/day for maintenance) Problem/Etiology/Signs/Symptoms Suboptimal nutritional intakes related to metabolic demands as evidenced by NPO status and inability to meet nutritional requirements. *improved w/ active EN support order Expected Outcomes/Goals - Monitor provision of nutrition support w/ goal of pt meeting at least 80% of estimated nutritional needs, labs trending WNL, normal GI function, and skin integrity/wt maintenance Dietitian Recommendations * Recommend continuing Vital High Protein at 50 ml/hr, Free Water Flush: 150 ml Q6h via NGT Provides: 1200 kcal/day, 105 gm protein/day, and 1603 ml free water/day Meets: 81% of estimated protein needs and 94% of upper end of estimated protein needs Follow Up High Risk: F/U in 2-3 days Addendum: 04/20/20 at [address] CORRECTION: Current Diet Order/Nutrition Support: Vital High Protein at 50 ml/hr, Free Water Flush: 150 ml Q6h via NGT x5 days [id number] Addendum: 04/20/20 at [address] CORRECTION: Subjective Info: Pt now w/ Covid PCR Negative x 2 and d/c PUI isolation per MD note. Remains sedated and on vent. RD visit deferred this time d/t pt remains in ICU and for conservation efforts of PPE. Per RN note this morning, pt infusing propofol at 40 mcg/kg/min (16 ml/hr = 845 kcal) and pt tolerating TF at goal rate w/o difficulty. Minimal residuals noted for today per EMR. +BM 04/19 per I&Os. Current TF regimen continues to be adequate and appropriate. EP,RD
--- NOTE | 2020-04-20 10:17 | NUR ---
Dietitian Recommendations * Recommend continuing Vital High Protein at 50 ml/hr, Free Water Flush: 150 ml Q6h via NGT Provides: 1200 kcal/day, 105 gm protein/day, and 1603 ml free water/day Meets: 81% of estimated protein needs and 94% of upper end of estimated protein needs Please see Nutrition F/U for details. EP, RD
[2020-04-20] MEDS: MICAFUNGIN SODIUM 100 MG in NS 100 ML IV SCH (12:55)
[2020-04-20] MEDS: MORPHINE I.V. DRIP 100 ML IV PRN (15:30)
--- NOTE | 2020-04-20 19:30 | NUR ---
Report given to oncoming staff to assume care of patient. No distress at this time. Pt had two liquid brown stools today. Tolerating tube feeds.
[2020-04-20] MEDS: VANCOMYCIN HCL 1 GM/NS PREMIX 250 ML IV SCH (19:50)
[2020-04-20] MEDS: ALBUTEROL SULFATE 0.083% 2.5 MG/3 ML VIAL.NEB INH SCH (19:53)
--- NOTE | 2020-04-20 20:00 | NUR ---
ORALLY INTUBATED. SEDATED. ON DIPRIVAN @ 50 MCG/KG/MIN. AND MORPHINE @ 6 MG/HR. SUCTIONED ETT WITH SMALL AMOUNT OF THICK YELLOW MUCUS OBTAINED. ORAL CARE GIVEN. OGT FEEDING WITH VITAL HIGH PROTEIN AT 50CC/HR. RESIDUAL CHECK 50. GUNJAN SOFT WRIST RESTRAINTS ON FOR SAFETY. BROOKE PICC LINE DRSG D/I. OSMAN CATH PATENT DRAINING CLEAR YELLOW URINE TO GRAVITY. SR.
--- NOTE | 2020-04-20 22:00 | NUR ---
SUCTIONED. HS CARE GIVEN. OGT FLUSHED WITH 150CC H2O.
[2020-04-21] VITALS (34 sets, daily range): BP systolic 84–122
--- NOTE | 2020-04-21 | NUR ---
SUCTIONED WITH SAME RESULTS. TURNED. ORAL CARE GIVEN. RESIDUAL CHECK 60. VSS. PULSES PALPABLE.
[2020-04-21] MEDS: PROPOFOL DRIP 100 ML IV PRN ×6 (00:46→23:27)
--- NOTE | 2020-04-21 03:00 | NUR ---
1 LARGE LOOSE WATERY DARK GREENISH BROWN STOOL DEFECATED. CLEANED. ADIA CARE GIVEN. OSMAN CARE, BACK CARE, DONE. Z-GUARD APPLIED TO PERINEUM, SKIN CARE RENDERED. CHG BATH GIVEN. COMPLETE LINEN CHANGE. DOES NOT ASSIST WITH TURNING. MARISELA PROC WELL.
[2020-04-21] MEDS: VANCOMYCIN HCL 1 GM/NS PREMIX 250 ML IV SCH ×3 (03:42→20:55)
--- NOTE | 2020-04-21 04:00 | NUR ---
SUCTIONED WITH SAME RESULTS. CIRCULATION CHECK DONE, PULSES PALPABLE. ORAL CARE GIVEN. RESIDUAL CHECK 70CC. OGT FLUSHED WITH 150CC H2O.
[2020-04-21] MEDS: PIPERACILLIN/TAZO 4.5GM/DEX-IS 100 ML IV SCH ×3 (05:36→22:57)
--- NOTE | 2020-04-21 05:45 | NUR ---
MORPHINE DRIP I witnessed Geovany GAGNON change Morphine drip to 4mg/HR.
--- NOTE | 2020-04-21 05:45 | NUR ---
BP85/52, OGT FEEDING OFF. HOB FLAT, FEET / LEGS ELEVATED. . MORPHINE DRIP DECREASED TO 4 MG/HR. DESATURATES AT TIMES.
--- NOTE | 2020-04-21 06:00 | NUR ---
UO GOOD. BP BETTER 94/60. MORPHINE DRIP LEFT AT 4 MG/HR. DIPRIVAN DRIP AT 50MCG/KG/MIN. PULSES PALPABLE. REMAINS IN GUARDED CONDITION.
--- NOTE | 2020-04-21 06:30 | NUR ---
BP BETTER. HOB UP 30 DEGREES. OGT FEEDING TURNED BACK ON.
[2020-04-21 06:43] LABS: BASOPHILS % (AUTO) 0.1 % (0.0-2.0); EOSINOPHILS % (AUTO) 0.1 % (0.0-4.0); HEMATOCRIT 33.4 % (36-48); HEMOGLOBIN 10.8 g/dL (12.0-16.0); LYMPHOCYTES # (AUTO) 0.5 K/uL (1.0-5.5); LYMPHOCYTES % (AUTO) 5.2 % (20.5-51.5); MEAN CORPUSCULAR HEMOGLOBIN 26 pg (27-31); MEAN CORPUSCULAR HGB CONC 32 % (32-36); MEAN CORPUSCULAR VOLUME 79 fL (79.0-98.0); MONOCYTES # (AUTO) 0.4 K/uL (0.0-1.0); MONOCYTES % (AUTO) 3.8 % (1.7-9.3); NEUTROPHILS # (AUTO) 9.3 K/uL (1.8-7.7); NEUTROPHILS % (AUTO) 90.8 % (40.0-70.0); PLATELET COUNT (AUTO) 209 K/uL (130-430); RED BLOOD CELL COUNT(AUTO) 4.21 MIL/uL (4.2-6.2); RED CELL DISTRIBUTION WIDTH 19.6 % (9.0-15.0); WHITE BLOOD COUNT (AUTO) 10.2 K/uL (4.8-10.8)
[2020-04-21] MEDS: ALBUTEROL SULFATE 0.083% 2.5 MG/3 ML VIAL.NEB INH SCH ×4 (07:19→19:00)
[2020-04-21 07:55] LABS: C-REACTIVE PROTEIN QUANT 19.4 mg/dL (0-0.5)
[2020-04-21 07:57] LABS: ALBUMIN 1.7 g/dL (3.4-4.8); CALCIUM 8.1 mg/dL (8.4-11.0); CREATININE 0.43 mg/dL (0.55-1.30); POTASSIUM 3.9 mmol/L (3.5-5.1); TOTAL BILIRUBIN 0.5 mg/dL (0.0-1.0)
--- NOTE | 2020-04-21 08:00 | NUR ---
AM NOTES: Received patient intubated, vent setting PRVC 18m tv 400, fio2 70%, peep 8. saturation between 85-98%.lung sound rhonchi,oral care provided. active bowel sound. patient had loose bowel movement dark brown. good oral care provided. turn and reposition with pillow support. keep hob elevated to prevent aspiration. paula catheter draining well via gravity. emptied 150ml.
[2020-04-21] MEDS: DEXAMETHASONE SOD PHOSPHATE 10 MG/ML VIAL IVP SCH (08:27)
[2020-04-21] MEDS: DOCUSATE SODIUM 100 MG/10 ML UDC PO SCH ×3 (08:27→20:57)
[2020-04-21] MEDS: FAMOTIDINE PF 20 MG/2 ML VIAL IVP SCH (08:27)
[2020-04-21] MEDS: ENOXAPARIN SODIUM 40 MG/0.4 ML SYRINGE SUBCUT SCH (08:28)
--- NOTE | 2020-04-21 09:40 | NUR ---
notes: Received call from patient daughter( Rocio crisostomo) updated patient current condition and requested to see mom, housekeeping director notified and received approval.
--- NOTE | 2020-04-21 10:00 | NUR ---
Patient repositioned by staff every 2 hours with pillow support.
[2020-04-21] MEDS: MORPHINE I.V. DRIP 100 ML IV PRN (10:22)
--- NOTE | 2020-04-21 13:15 | NUR ---
Witnessed IV drip titration: Propofol drip titrated to 40 mcg/kg/min.
--- NOTE | 2020-04-21 13:20 | NUR ---
1315 decrease diprivan to 40mcg/kg/min. 1320 started levophed bp 80/39, map 58, saturation 88%.
[2020-04-21] MEDS: NOREPINEPHRINE BITARTRATE 4 MG in NS 246 ML IV PRN (13:22)
[2020-04-21] MEDS: MICAFUNGIN SODIUM 100 MG in NS 100 ML IV SCH (14:12)
--- NOTE | 2020-04-21 15:00 | NUR ---
Witnessed IV drip titration: Propofol drip titrated to 50 mcg/kg/min.
--- NOTE | 2020-04-21 15:00 | NUR ---
iv drip: diprivan increase to 50mcg/kg/min, patient is uneasy and biting the ET tube. charge nurse witnessed.
--- NOTE | 2020-04-21 15:42 | NUR ---
RT NOTES Dr Lester made aware of pt's peak pressures, ordered Vent settings to be changed to PC 20 R.R 20. Will monitor pt.
--- NOTE | 2020-04-21 15:50 | NUR ---
pulmo consult: Md Lester is here updated patient current condition. also informed patient daughter would like to speak with him. phone number provided.
[2020-04-21] MEDS ORDERED: METOCLOPRAMIDE HCL 10 MG/2 ML VIAL IVP ONE (17:15)
--- NOTE | 2020-04-21 17:31 | NUR ---
ABG RESULT: MD Lester informed about the ABG result stated to keep same setting.RT Coreas made aware.
--- NOTE | 2020-04-21 18:15 | NUR ---
notes: family is here earlier visited.updated about the current condition.
--- NOTE | 2020-04-21 19:18 | NUR ---
all needs mets. vital sign stable,on levophed @ 0.03mcg/kg/min. diprivan @ 50mcg/kg/min, morphine 4mg/hr. afebrile.endorsed care to carly GAGNON.
--- NOTE | 2020-04-21 19:30 | NUR ---
Opening note Received report and assumed care. Patient with vent settings on pressure control 20 and tolerating well. IV drips infusing to BROOKE picc; patent. Hernandez catheter in place and draining urine to gravity. will continue to monitor patient as per unit protocol.
--- NOTE | 2020-04-21 20:30 | NUR ---
Assessment completed and patient repositioned for comfort.
[2020-04-21] MEDS: METOCLOPRAMIDE HCL 10 MG/2 ML VIAL IVP SCH (22:59)
[2020-04-22] VITALS (36 sets, daily range): BP systolic 89–121
--- NOTE | 2020-04-22 01:39 | NUR ---
Repositioned for comfort and RT at beside providing suctioning endotracheally. Minimum amount of secretions obtained.
[2020-04-22] MEDS: VANCOMYCIN HCL 1 GM/NS PREMIX 250 ML IV SCH ×3 (04:48→20:30)
[2020-04-22] MEDS: PIPERACILLIN/TAZO 4.5GM/DEX-IS 100 ML IV SCH ×3 (06:11→22:30)
[2020-04-22] MEDS: METOCLOPRAMIDE HCL 10 MG/2 ML VIAL IVP SCH ×3 (06:11→23:17)
[2020-04-22 07:06] LABS: BASOPHILS # (AUTO) 0.1 K/uL (0.0-0.2); BASOPHILS % (AUTO) 0.3 % (0.0-2.0); EOSINOPHILS # (AUTO) 0.1 K/uL (0.0-0.4); EOSINOPHILS % (AUTO) 0.7 % (0.0-4.0); HEMATOCRIT 34.6 % (36-48); HEMOGLOBIN 11.1 g/dL (12.0-16.0); LYMPHOCYTES # (AUTO) 1.7 K/uL (1.0-5.5); LYMPHOCYTES % (AUTO) 8.5 % (20.5-51.5); MEAN CORPUSCULAR HEMOGLOBIN 26 pg (27-31); MEAN CORPUSCULAR HGB CONC 32 % (32-36); MEAN CORPUSCULAR VOLUME 80 fL (79.0-98.0); MONOCYTES # (AUTO) 0.8 K/uL (0.0-1.0); MONOCYTES % (AUTO) 4.3 % (1.7-9.3); NEUTROPHILS # (AUTO) 16.7 K/uL (1.8-7.7); NEUTROPHILS % (AUTO) 86.2 % (40.0-70.0); PLATELET COUNT (AUTO) 286 K/uL (130-430); RED BLOOD CELL COUNT(AUTO) 4.33 MIL/uL (4.2-6.2); RED CELL DISTRIBUTION WIDTH 19.7 % (9.0-15.0); WHITE BLOOD COUNT (AUTO) 19.4 K/uL (4.8-10.8)
[2020-04-22 07:26] LABS: ALBUMIN 1.7 g/dL (3.4-4.8); CALCIUM 8.2 mg/dL (8.4-11.0); CREATININE 0.58 mg/dL (0.55-1.30); TOTAL BILIRUBIN 0.6 mg/dL (0.0-1.0)
[2020-04-22] MEDS: ALBUTEROL SULFATE 0.083% 2.5 MG/3 ML VIAL.NEB INH SCH ×4 (07:33→20:04)
--- NOTE | 2020-04-22 08:00 | NUR ---
AM ASSESSMENT PT INTUBATED, ON PROPOFOL DRIP AT 45 MCG/KG/MIN, MORPHINE AT 4 ML/HR, LEVOPHED DRIP AT 0.03 MCG/KG/MIN. OGT INTACT WITH VITAL HP AT 50 ML PER HR. REPOSITIONED IN BED, RESTRAINTS OFF AND ON, PILLOW TO HER BACK AND LEGS, OSMAN CATHETER DRAINING WELL.
[2020-04-22] MEDS: FAMOTIDINE PF 20 MG/2 ML VIAL IVP SCH (09:54)
[2020-04-22] MEDS: DOCUSATE SODIUM 100 MG/10 ML UDC PO SCH ×2 (09:55→20:30)
[2020-04-22] MEDS: ENOXAPARIN SODIUM 40 MG/0.4 ML SYRINGE SUBCUT SCH (09:55)
[2020-04-22] MEDS: DEXAMETHASONE SOD PHOSPHATE 10 MG/ML VIAL IVP SCH (09:56)
[2020-04-22] MEDS: PROPOFOL DRIP 100 ML IV PRN ×3 (10:23→21:18)
--- NOTE | 2020-04-22 12:20 | NUR ---
Spoke w/ Cipriano at [facility] transfer Ctr-requesting medical info for potential transfer to [facility]. [phone]/fax [phone]. Sp[address] Dawn-order for transfer to [facility] given, she stated pt is not stable for transfer but she will honor family and accepting MD's wishes. Covid rapid test [facility] be [facility] request.
--- NOTE | 2020-04-22 12:23 | NUR ---
Discharge Planning: DCP faxed pt referral to [facility] att: Cipriano (f [phone]) CM to follow up
--- NOTE | 2020-04-22 14:00 | NUR ---
NASAL SWAB SAMPLE TAKEN FROM [facility] FOR RAPID URIAH TEST AND SENT TO LAB.
[2020-04-22] MEDS: MICAFUNGIN SODIUM 100 MG in NS 100 ML IV SCH (14:10)
--- NOTE | 2020-04-22 14:24 | NUR ---
RT NOTES FIO2 CHANGED TO 60% BY DR. TIM. WILL CONTINUE TO MONITOR PATIENT.
[2020-04-22] MEDS: NOREPINEPHRINE BITARTRATE 4 MG in NS 246 ML IV PRN (15:56)
--- NOTE | 2020-04-22 15:59 | NUR ---
XRAY CHEST XRAY DONE AT BEDSIDE
[2020-04-22] MEDS ORDERED: METOCLOPRAMIDE HCL 10 MG/2 ML VIAL ONE ×2 (16:12→23:16)
[2020-04-22] MEDS: MORPHINE I.V. DRIP 100 ML IV PRN (16:45)
--- NOTE | 2020-04-22 18:00 | NUR ---
FAMILY. PT'S AND THEIR DAUGHTER AT BEDSIDE, UPDATE GIVEN. THEY WANTED TO GIVE HER LIGHT MASSAGE TO THE FEET AND ARMS, RESTRAINTS OFF. DR GUO CAME IN AND SPOKE TO THE FAMILY.
--- NOTE | 2020-04-22 19:20 | NUR ---
OPENING NOTE Received SBR report from off coming RN for continuity of care. Pt laying in bed sedated and on ventilator. OG tube in place with Vital HP infusing @ 50 ml/hr. Diprivan gtt infusing @ 45 mcg/kg/min, Morphine gtt infusing @ 4 mg/hr, and Levophed gtt infusing @ 0.03 mcg/kg/min. Hernandez catheter in place and draining to gravity. Bed locked and in lowest position, safety precautions in place.
--- NOTE | 2020-04-22 21:00 | NUR ---
Pt laying in bed, sedated no visible s/s of distress noted. Pt on ventilator, pressure control with a rate of 20, 60% FiO2 and PEEP of 8. Provided PO care and suctioning, pt tolerated well. OG tube in place, placement verified by auscultation of air bolus, minimal residuals obtained, Vital HP infuisng @ 50 ml/hr. Left upper arm PICC in place with Diprivan gtt infusing @ 45 mcg/kg/min, Morphine gtt @ 4mg/hr, Levophed gtt @ 0.03 mcg/kg/min. Hernandez catheter in place, draining by gravity. Provided turning and repositioning. Bed locked in lowest position, safety precautions in place.
[2020-04-23] VITALS (37 sets, daily range): BP systolic 91–128
[2020-04-23] MEDS: PROPOFOL DRIP 100 ML IV PRN ×4 (00:13→21:16)
[2020-04-23] MEDS: VANCOMYCIN HCL 1 GM/NS PREMIX 250 ML IV SCH ×3 (04:27→20:51)
--- NOTE | 2020-04-23 05:00 | NUR ---
WITNESS Witnessed KALIN Solis titrate Diprivan Drip to 40mcg/kg/min.
[2020-04-23 06:09] LABS: ALANINE AMINOTRANSFERASE 113 U/L (12-78); ALBUMIN 1.6 g/dL (3.4-4.8); ASPARTATE AMINOTRANSFERASE 82 U/L (10-37); CHLORIDE 107 mmol/L (98-107); CREATININE 0.54 mg/dL (0.55-1.30); GLUCOSE 108 mg/dL (70-99); POTASSIUM 3.9 mmol/L (3.5-5.1); SODIUM SERUM 145 mmol/L (136-145); TOTAL BILIRUBIN 0.5 mg/dL (0.0-1.0); UREA NITROGEN, BLOOD 20 mg/dL (8-21)
[2020-04-23] MEDS ORDERED: METOCLOPRAMIDE HCL 10 MG/2 ML VIAL ONE ×3 (06:27→23:24)
[2020-04-23] MEDS: METOCLOPRAMIDE HCL 10 MG/2 ML VIAL IVP SCH ×3 (06:34→23:31)
[2020-04-23] MEDS: PIPERACILLIN/TAZO 4.5GM/DEX-IS 100 ML IV SCH ×3 (06:34→22:00)
[2020-04-23 06:37] LABS: BASOPHILS % (AUTO) 0.3 % (0.0-2.0); EOSINOPHILS # (AUTO) 0.2 K/uL (0.0-0.4); EOSINOPHILS % (AUTO) 1.3 % (0.0-4.0); HEMATOCRIT 32.8 % (36-48); HEMOGLOBIN 10.4 g/dL (12.0-16.0); LYMPHOCYTES # (AUTO) 1.4 K/uL (1.0-5.5); LYMPHOCYTES % (AUTO) 8.8 % (20.5-51.5); MEAN CORPUSCULAR HEMOGLOBIN 26 pg (27-31); MEAN CORPUSCULAR HGB CONC 32 % (32-36); MEAN CORPUSCULAR VOLUME 80 fL (79.0-98.0); MONOCYTES # (AUTO) 0.7 K/uL (0.0-1.0); MONOCYTES % (AUTO) 4.2 % (1.7-9.3); NEUTROPHILS # (AUTO) 13.2 K/uL (1.8-7.7); NEUTROPHILS % (AUTO) 85.4 % (40.0-70.0); PLATELET COUNT (AUTO) 242 K/uL (130-430); RED BLOOD CELL COUNT(AUTO) 4.09 MIL/uL (4.2-6.2); RED CELL DISTRIBUTION WIDTH 19.5 % (9.0-15.0); WHITE BLOOD COUNT (AUTO) 15.5 K/uL (4.8-10.8)
[2020-04-23] MEDS: ALBUTEROL SULFATE 0.083% 2.5 MG/3 ML VIAL.NEB INH SCH ×3 (07:16→15:56)
[2020-04-23 07:21] LABS: GFR AFRICAN AMERICAN 150 mL/min (>90)
[2020-04-23 07:22] LABS: ANION GAP < 3 (5-15)
--- NOTE | 2020-04-23 07:26 | NUR ---
CLOSING NOTE Endorsed SBAR report to oncoming RN for continuity of care.
--- NOTE | 2020-04-23 08:00 | NUR ---
AM ASSESSMENT. PT AFEBRILE, OGT IN PLACE, GASTRIC RESIDUAL NONE WHEN ASPIRATED, FEEDING CONTINUES AT 50 ML PER HR, PT ON PROPOFOL DRIP AT 40 MCG/KG/MIN, MORPHINE DRIP AT 4 MG PER HR. TURNED AND REPOSITIONED IN BED, HEAD OF BED ELEVATED AT 35 DEGREE ANGLE. ARMS AND FEET UP ON PILLOW.
[2020-04-23] MEDS: FAMOTIDINE PF 20 MG/2 ML VIAL IVP SCH (08:53)
[2020-04-23] MEDS: DEXAMETHASONE SOD PHOSPHATE 10 MG/ML VIAL IVP SCH (08:53)
[2020-04-23] MEDS: DOCUSATE SODIUM 100 MG/10 ML UDC PO SCH ×2 (08:53→20:51)
[2020-04-23] MEDS: ENOXAPARIN SODIUM 40 MG/0.4 ML SYRINGE SUBCUT SCH (08:54)
--- NOTE | 2020-04-23 10:30 | NUR ---
Discharge Planning: DCP faxed updated clinicals pt to [facility] att: Cipriano (f [phone]) CM to follow up
[2020-04-23] MEDS: MICAFUNGIN SODIUM 100 MG in NS 100 ML IV SCH (13:32)
--- NOTE | 2020-04-23 13:40 | NUR ---
RT NOTE: 1340 Increased vent rate to 24 breaths/min per Dr Lester. Will continue to monitor pt. Addendum: 04/23/20 at 1346 by Lisa Arce RT Amended: Links added.
--- NOTE | 2020-04-23 15:40 | NUR ---
Patient accepted at [facility] room 3217-[facility]. Number for report [phone] ext [phone]. Ambulance transport by [facility] [phone] at 5:30 PM.
--- NOTE | 2020-04-23 15:50 | NUR ---
FAMILY. CALLED UP PT'S DAUGHTER MERCED BLACKWOOD AND MADE HER KNOWN THAT HER MOTHER WILL BE TRANSFERRED TO [facility] ESTIMATED TIME OF HIDE COOKING OPERATOR 1730. SHE IS AWARE OF HER MOM'S DELICATE CONDITION, PT UNSTABLE FOR TRANSFER AND YET FAMILY DESIRED TO LEAVE THIS FACILITY. PHONE CONVERSATION WITNESSED BY KALIN CASTELLANOS.
--- NOTE | 2020-04-23 16:23 | NUR ---
CHEST XRAY SPOKE TO DR TIM REGARDING DR SALINAS'S REPORT. READ OUT TO DR TIM ON THE IMPRESSION. DR TIM STATED THAT PT MAY STILL BE TRANSFERRED OUT TO [facility] AND TO RECOMMEND CT SCAN OF THE CHEST THERE.
--- NOTE | 2020-04-23 16:57 | NUR ---
REPORT. CALLED [address], SPOKE TO KALIN NEWMAN FOR REPORT, ADDED THE RECOMMENDATION FOR CT OF THE CHEST WELL.
--- NOTE | 2020-04-23 17:52 | NUR ---
[facility] HERE FOR TRANSPORTING PT. REPORT TO ACLS NURSE GIVEN. FAMILY PRESENT AND THEY HAVE ALL PT'S PERSONAL BELONGINGS.
--- NOTE | 2020-04-23 18:50 | NUR ---
NURSING. [facility] NURSE SPOKE TO FAMILY THAT PT IS UNSTABLE TO BE TRANSFERRED OUT OF THE HOSPITAL, FIO2 TITRATED TO 100%, PEEP 12. FAMILY AGREED TO KEEP PT IN THE HOSPITAL. DR GUO WAS CALLED AND INFORMED OF THE TRANSFER STATUS, ORDERED TO KEEP ALL ORDERS THE SAME.
[2020-04-23] MEDS: MORPHINE I.V. DRIP 100 ML IV PRN (18:59)
--- NOTE | 2020-04-23 19:30 | NUR ---
OPENING NOTE Received SBAR report from off coming RN for continuity of care. Pt laying in bed, no s/s of acute distress noted. Pt sedated and on ventilator. Levophed gtt infusing @ 0.02 mcg/kg/min, morphine gtt @ 4 mg/hr, Diprivan gtt infusing @ 40 mcg/kg/min. OGT in place, Vital HP infusing @ 50 ml/hr. Hernandez catheter in place and draining to gravity. Bed locked and in lowest position, safety precautions in place.
[2020-04-23] MEDS: NOREPINEPHRINE BITARTRATE 4 MG in NS 246 ML IV PRN (23:35)
[2020-04-24] VITALS (26 sets, daily range): BP systolic 88–119
[2020-04-24] MEDS: VANCOMYCIN HCL 1 GM/NS PREMIX 250 ML IV SCH ×3 (04:00→21:21)
[2020-04-24] MEDS ORDERED: METOCLOPRAMIDE HCL 10 MG/2 ML VIAL ONE ×3 (05:38→23:16)
[2020-04-24] MEDS: METOCLOPRAMIDE HCL 10 MG/2 ML VIAL IVP SCH ×3 (05:43→23:17)
--- NOTE | 2020-04-24 06:00 | NUR ---
CHG CHG bath provided, pt tolerated well. Full linen change done.
[2020-04-24 06:46] LABS: EOSINOPHILS # (AUTO) 0.1 K/uL (0.0-0.4); HEMATOCRIT 32.9 % (36-48); HEMOGLOBIN 10.2 g/dL (12.0-16.0); LYMPHOCYTES % (AUTO) 8.1 % (20.5-51.5); MEAN CORPUSCULAR HEMOGLOBIN 25 pg (27-31); MEAN CORPUSCULAR HGB CONC 31 % (32-36); MEAN CORPUSCULAR VOLUME 82 fL (79.0-98.0); MONOCYTES # (AUTO) 0.6 K/uL (0.0-1.0); MONOCYTES % (AUTO) 4.9 % (1.7-9.3); NEUTROPHILS # (AUTO) 10.9 K/uL (1.8-7.7); PLATELET COUNT (AUTO) 213 K/uL (130-430); RED BLOOD CELL COUNT(AUTO) 4.01 MIL/uL (4.2-6.2); RED CELL DISTRIBUTION WIDTH 19.7 % (9.0-15.0); WHITE BLOOD COUNT (AUTO) 12.7 K/uL (4.8-10.8)
[2020-04-24 06:52] LABS: CALCIUM 8.2 mg/dL (8.4-11.0); CREATININE 0.46 mg/dL (0.55-1.30); POTASSIUM 4.2 mmol/L (3.5-5.1)
[2020-04-24] MEDS: PIPERACILLIN/TAZO 4.5GM/DEX-IS 100 ML IV SCH ×3 (07:07→23:17)
--- NOTE | 2020-04-24 07:25 | NUR ---
CLOSING NOTE Endorsed SBAR report to oncoming RN for continuity of care.
--- NOTE | 2020-04-24 07:30 | NUR ---
Opening Note Received bedside report from endorsing RN for continuation of care. Received patient intubated and sedated, resting in bed, no signs or symptoms of acute distress noted. Bed locked in lowest position, bed alarm on, and call light within reach. All safety precautions in place.
--- NOTE | 2020-04-24 07:51 | NUR ---
OPENING NOTE RECEIVED SBAR REPORT FROM OFF COMING RN FOR CONTINUITY OF CARE. PT LAYING IN BED SEDATED ON VENTILATOR. NO S/S OF ACUTE DISTRESS NOTED. LEVOPHED GTT INFUSING @ 0.02 MCG/KG/MIN, MORPHINE GTT @ 4 MG/HR, DIPRIVAN GTT @ 30 MCG/KG/MIN. OG TUBE IN PLACE, VITAL HP INFUSING @ 50 ML/HR. OSMAN CATHETER IN PLACE AND DRAINING TO GRAVITY. CHEST TUBE IN PLACE, DRESSING IN PLACE. BED LOCKED AND IN LOWEST POSITION, SAFETY PRECAUTIONS IN PLACE. Addendum: 04/25/20 at 0758 by Irma Ray RN WRONG TIME.
[2020-04-24] MEDS: DEXAMETHASONE SOD PHOSPHATE 10 MG/ML VIAL IVP SCH (08:24)
[2020-04-24] MEDS: FAMOTIDINE PF 20 MG/2 ML VIAL IVP SCH (08:24)
[2020-04-24] MEDS: ENOXAPARIN SODIUM 40 MG/0.4 ML SYRINGE SUBCUT SCH (08:25)
[2020-04-24] MEDS: DOCUSATE SODIUM 100 MG/10 ML UDC PO SCH ×2 (08:25→21:00)
--- NOTE | 2020-04-24 09:58 | NUR ---
Spoke with Dr. Lester regarding CXR results, states for consult with Dr. Salmon for chest tube placement.
--- NOTE | 2020-04-24 10:21 | NUR ---
Case mgt: S/W nurse Amelia earlier re: transfer to [facility]-per Amelia, pt didn't go because pt became unstable when ambulance crew put pt on gurney yesterday and pt's transfer held. I called [facility] at [phone] ext [phone] to see if bed #3217 on [address] [facility] is still available-Left message, but saw new order for Dr. Salmon-possible chest tube placement--will f/u with nurse/MDs for stability of transfer to [facility]-MAEVE GAGNON
--- NOTE | 2020-04-24 10:52 | NUR ---
Called Shira Estes with a consult, Oscar Hanks is community organization director today now speaking with nurse Ankur
[2020-04-24] MEDS: ALBUTEROL SULFATE 0.083% 2.5 MG/3 ML VIAL.NEB INH SCH ×3 (11:48→15:35)
[2020-04-24] MEDS: MICAFUNGIN SODIUM 100 MG in NS 100 ML IV SCH (12:11)
--- NOTE | 2020-04-24 14:15 | NUR ---
Chest Tube Insertion - Dr. Jus Luu at bedside for chest tube insertion.
--- NOTE | 2020-04-24 15:13 | NUR ---
Dr. Lester at bedside examining patient. New orders received.
[2020-04-24] MEDS ORDERED: ACETAMINOPHEN 325 MG TABLET PO PRN (15:15)
[2020-04-24] MEDS ORDERED: ACETAMINOPHEN 325 MG TABLET ONE (15:27)
[2020-04-24] MEDS: MORPHINE I.V. DRIP 100 ML IV PRN (15:59)
--- NOTE | 2020-04-24 16:06 | NUR ---
Nutrition F/U RD reviewed pt's current EMR record including diet Hx, physician notes, nursing notes, pertinent labs/meds/procedures, care trends, and care activity. Admission Dx: Acute respiratory failure, possible pneumonia PMH: stage 4 metastatic breast CA per physician notes Pt also found w/ severe malnutrition per physician notes SARS-CoV-2 Ag (Rapid) Negative 04/13 SARS-CoV2 (PCR) Negative 04/13 & 04/15 Current Diet Order/Nutrition Support: Vital High Protein at 50 ml/hr, Free Water Flush: 200 ml Q6h via NGT x1 days Subjective Info: RD bedside visit deferred to conserve PPE as pt remains in ICU. RD spoke w/ supercharger repair supervisor via phone call. RN reported that pt's transfer to [facility] was held last night as pt was unstable. Today, pt has a STAT order for a chest tube placement per RN report. Pt is no longer sedated, but continues to receive TF Vital HP at 50 m/hr, without any s/s of intolerance per RN report. Per EMR review, TF Intakes: 400 ml /5; GRV: 35 ml 12/5; abd is soft and non-distended w/ active bowel sounds; last BM x1 04/24. Wt remains unchanged since last RD visit. Current TF regimen continues to be adequate and appropriate. Pertinent Medications: morphine, piperacillin/tazobactam IV, decadron Pertinent Labs: BG 107 H (trending up), WBC 12.7 H (trending down), AST 82 H (trending down), ALT 113 H, ALP 301 H, ALB 1.6 L Skin Integrity Comment: Jamal scale: 14; no skin issues noted Estimated Energy Expenditure (kcals/day) 1489 kcal/day (PSU d/t critical illness on vent support) Estimated Protein Required (g/day) 67-112 gm/day (1.2-2 gm/kg Adj IBW for CA, acute state, vent support) Estimated Fluid Required (l/day) 1.5 L/day (1 ml/kcal/day for maintenance) Problem/Etiology/Signs/Symptoms Suboptimal nutritional intakes related to metabolic demands as evidenced by NPO status and inability to meet nutritional requirements. *improved w/ active EN support order Expected Outcomes/Goals - Monitor provision of nutrition support w/ goal of pt meeting at least 80% of estimated nutritional needs, labs trending WNL, normal GI function, and skin integrity/wt maintenance Dietitian Recommendations * Recommend continuing Vital High Protein at 50 ml/hr, Free Water Flush: 150 ml Q6h via NGT Provides: 1200 kcal/day, 105 gm protein/day, and 1803 ml free water/day Meets: 81% of estimated protein needs and 94% of upper end of estimated protein needs Follow Up High Risk: F/U in 2-3 days
--- NOTE | 2020-04-24 16:12 | NUR ---
Dietitian Recommendations * Recommend continuing Vital High Protein at 50 ml/hr, Free Water Flush: 150 ml Q6h via NGT Provides: 1200 kcal/day, 105 gm protein/day, and 1803 ml free water/day Meets: 81% of estimated protein needs and 94% of upper end of estimated protein needs LP, RD Please refer to Nutrition F/U for details.
--- NOTE | 2020-04-24 16:50 | NUR ---
Dr. Dawn at bedside examining patient. New orders received.
--- NOTE | 2020-04-24 18:40 | NUR ---
BM Patient had small loose BM. Pericare done and bed linens changed. Patient cleaned, turned, repositioned, and suctioned.
--- NOTE | 2020-04-24 19:15 | NUR ---
Closing Note Endorsed bedside report to oncoming RN using SBAR approach for continuation of care.
--- NOTE | 2020-04-24 19:25 | NUR ---
OPENING NOTE RECEIVED SBAR REPORT FROM OFF COMING RN FOR CONTINUITY OF CARE. PT LAYING IN BED SEDATED ON VENTILATOR. NO S/S OF ACUTE DISTRESS NOTED. LEVOPHED GTT INFUSING @ 0.02 MCG/KG/MIN, MORPHINE GTT @ 4 MG/HR, DIPRIVAN GTT @ 30 MCG/KG/MIN. OG TUBE IN PLACE, VITAL HP INFUSING @ 50 ML/HR. OSMAN CATHETER IN PLACE AND DRAINING TO GRAVITY. CHEST TUBE IN PLACE, DRESSING IN PLACE. BED LOCKED AND IN LOWEST POSITION, SAFETY PRECAUTIONS IN PLACE.
[2020-04-24] MEDS: PROPOFOL DRIP 100 ML IV PRN (21:27)
[2020-04-25] VITALS (33 sets, daily range): BP systolic 99–123
[2020-04-25] MEDS: VANCOMYCIN HCL 1 GM/NS PREMIX 250 ML IV SCH (03:02)
--- NOTE | 2020-04-25 03:30 | NUR ---
CHG BATH CHG BATH GIVEN, PT TOLERATED. fULL LINEN CHANGE DONE.
--- NOTE | 2020-04-25 04:00 | NUR ---
TURNED PT TO HER LEFT SIDE TO CHANGE CHEST TUBE DRESSING, PT DESATURATED TO MID AND LOW 80'S AND HR SHOT UP TO 170-130'S WELL PT SHOWING AND INCREASE IN RESPIRATORY DISTRESS. PT PLACED BACK TO HER BACK AND STOPPED DRESSING CHANGE ATTEMPT D/T PT'S CONDITION. WILL CONTINUE TO MONITOR AND ASSESS. .
--- NOTE | 2020-04-25 04:55 | NUR ---
Called to assess pt. for low SpO2 reading. Pt. found with saturation of 86%, Pt. sx and FIO2 increased to 80%. SpO2 now reads 91%, KALIN Solis notified.
--- NOTE | 2020-04-25 05:00 | NUR ---
MORPHINE DRIP WITNESSED ORLANDO GAGNON TITRATE MORPHINE DRIP TO 5 MG/HR PER ORDERS.
[2020-04-25] MEDS: PIPERACILLIN/TAZO 4.5GM/DEX-IS 100 ML IV SCH ×3 (05:46→22:00)
[2020-04-25] MEDS ORDERED: METOCLOPRAMIDE HCL 10 MG/2 ML VIAL ONE ×3 (05:47→23:06)
[2020-04-25] MEDS: METOCLOPRAMIDE HCL 10 MG/2 ML VIAL IVP SCH ×3 (05:47→23:07)
--- NOTE | 2020-04-25 06:00 | NUR ---
GTT TITRATION WITNESSED ORLANDO GAGNON TITRATE DIPRIVAN DRIP TO 35 MCG/KG/MIN AND MORPHINE DRIP TO 6 MG/HR PER ORDERS.
[2020-04-25 06:51] LABS: BASOPHILS % (AUTO) 0.2 % (0.0-2.0); EOSINOPHILS # (AUTO) 0.5 K/uL (0.0-0.4); EOSINOPHILS % (AUTO) 2.4 % (0.0-4.0); HEMATOCRIT 33.1 % (36-48); HEMOGLOBIN 10.1 g/dL (12.0-16.0); LYMPHOCYTES # (AUTO) 1.4 K/uL (1.0-5.5); LYMPHOCYTES % (AUTO) 6.5 % (20.5-51.5); MEAN CORPUSCULAR HEMOGLOBIN 25 pg (27-31); MEAN CORPUSCULAR HGB CONC 31 % (32-36); MEAN CORPUSCULAR VOLUME 82 fL (79.0-98.0); MONOCYTES # (AUTO) 0.9 K/uL (0.0-1.0); MONOCYTES % (AUTO) 4.3 % (1.7-9.3); NEUTROPHILS # (AUTO) 18.3 K/uL (1.8-7.7); PLATELET COUNT (AUTO) 249 K/uL (130-430); RED BLOOD CELL COUNT(AUTO) 4.03 MIL/uL (4.2-6.2); RED CELL DISTRIBUTION WIDTH 19.7 % (9.0-15.0); WHITE BLOOD COUNT (AUTO) 21.1 K/uL (4.8-10.8)
[2020-04-25 07:05] LABS: CALCIUM 8.4 mg/dL (8.4-11.0); CREATININE 0.34 mg/dL (0.55-1.30); POTASSIUM 3.8 mmol/L (3.5-5.1)
--- NOTE | 2020-04-25 07:30 | NUR ---
CLOSING NOTE ENDORSED SBAR REPORT TO ONCOMING RN FOR CONTINUITY OF CARE.
[2020-04-25] MEDS: ALBUTEROL SULFATE 0.083% 2.5 MG/3 ML VIAL.NEB INH SCH ×4 (07:42→19:00)
--- NOTE | 2020-04-25 08:09 | NUR ---
Dr. Luu at bedside examining patient. New orders received.
[2020-04-25] MEDS: DEXAMETHASONE SOD PHOSPHATE 10 MG/ML VIAL IVP SCH (08:11)
[2020-04-25] MEDS: FAMOTIDINE PF 20 MG/2 ML VIAL IVP SCH (08:11)
[2020-04-25] MEDS: DOCUSATE SODIUM 100 MG/10 ML UDC PO SCH ×2 (08:11→20:53)
[2020-04-25] MEDS: ENOXAPARIN SODIUM 40 MG/0.4 ML SYRINGE SUBCUT SCH (08:12)
[2020-04-25] MEDS ORDERED: NOREPINEPHRINE BITARTRATE 4 MG in D5W 246 ML IV PRN (08:14)
[2020-04-25] MEDS ORDERED: COMMUNICATION ORDER XX ONE (08:15)
--- NOTE | 2020-04-25 09:36 | NUR ---
Spoke with patient's PCP Dr. Miner regarding patient status.
--- NOTE | 2020-04-25 10:30 | NUR ---
Chest Tube Dressing Change Dressing moderately saturated with red drainage. New Xeroform dressing placed and sterile gauze placed.
--- NOTE | 2020-04-25 11:20 | NUR ---
Family Update Spoke with patient's daughter Rocio Chan on the phone regarding patient status and plan of care. All questions answered and education provided.
[2020-04-25] MEDS: VANCOMYCIN HCL 1,000 MG in D5W 250 ML IV SCH ×2 (11:29→20:00)
[2020-04-25] MEDS: PROPOFOL DRIP 100 ML IV PRN ×2 (11:30→17:32)
--- NOTE | 2020-04-25 13:03 | NUR ---
Dr. Gillette (in for Dr. Dawn) at bedside examining patient. New orders received.
[2020-04-25 13:15] LABS: NEUTROPHILS % (AUTO) 86.6 % (40.0-70.0)
[2020-04-25] MEDS: MORPHINE I.V. DRIP 100 ML IV PRN (13:46)
[2020-04-25] MEDS ORDERED: FUROSEMIDE 20 MG/2 ML VIAL IVP ONE (14:00)
--- NOTE | 2020-04-25 14:03 | NUR ---
Dr. Lester at bedside examining patient. New orders received.
--- NOTE | 2020-04-25 14:40 | NUR ---
1345 VENT FLOW RATE WAS CHANGED TO 70 BY Addendum: 04/25/20 at 1442 by Caridad Mendez RT Amended: Links added. Addendum: 04/25/20 at 1445 by Caridad Mendez RT FIO2 TO 70%
[2020-04-25] MEDS: MICAFUNGIN SODIUM 100 MG in D5W 100 ML IV SCH (16:23)
--- NOTE | 2020-04-25 18:46 | NUR ---
BM Patient had moderate loose BM. Pericare done and bed linens changed. Patient cleaned, turned, repositioned, and suctioned.
--- NOTE | 2020-04-25 19:02 | NUR ---
Closing Note Endorsed bedside report to oncoming RN using SBAR approach for continuation of care.
--- NOTE | 2020-04-25 19:15 | NUR ---
OPENING NOTE RECEIVED SBAR REPORT FROM OFF COMING RN FOR CONTINUITY OF CARE. PT LAYING IN BED SEDATED ON VENTILATOR. NO S/S OF ACUTE DISTRESS NOTED. MORPHINE GTT @ 4 MG/HR, DIPRIVAN GTT @ 35 MCG/KG/MIN. OG TUBE IN PLACE, VITAL HP INFUSING @ 50 ML/HR. OSMAN CATHETER IN PLACE AND DRAINING TO GRAVITY. CHEST TUBE IN PLACE, DRESSING IN PLACE. BED LOCKED AND IN LOWEST POSITION, SAFETY PRECAUTIONS IN PLACE.
[2020-04-25] MEDS: FUROSEMIDE 20 MG/2 ML VIAL IVP SCH (20:51)
[2020-04-26] VITALS (33 sets, daily range): BP systolic 97–131
[2020-04-26] MEDS: VANCOMYCIN HCL 1,000 MG in D5W 250 ML IV SCH ×3 (03:36→20:19)
--- NOTE | 2020-04-26 05:00 | NUR ---
CHG BATH CHG BATH PROVIDED, PT TOLERATED WELL. FULL LINEN CHANGE DONE.
--- NOTE | 2020-04-26 06:00 | NUR ---
TITRATION DIPRIVAN GTT TITRATED TO 30 MCG/KG/MIN PER PROTOCOL.
[2020-04-26] MEDS: PIPERACILLIN/TAZO 4.5GM/DEX-IS 100 ML IV SCH ×3 (06:03→23:35)
[2020-04-26] MEDS ORDERED: METOCLOPRAMIDE HCL 10 MG/2 ML VIAL ONE ×2 (06:04→23:30)
[2020-04-26] MEDS: METOCLOPRAMIDE HCL 10 MG/2 ML VIAL IVP SCH ×3 (06:07→23:36)
[2020-04-26 06:31] LABS: BASOPHILS # (AUTO) 0.1 K/uL (0.0-0.2); BASOPHILS % (AUTO) 0.4 % (0.0-2.0); EOSINOPHILS # (AUTO) 0.2 K/uL (0.0-0.4); EOSINOPHILS % (AUTO) 1.3 % (0.0-4.0); HEMATOCRIT 33.4 % (36-48); HEMOGLOBIN 10.1 g/dL (12.0-16.0); LYMPHOCYTES # (AUTO) 1.2 K/uL (1.0-5.5); LYMPHOCYTES % (AUTO) 6.6 % (20.5-51.5); MEAN CORPUSCULAR HEMOGLOBIN 25 pg (27-31); MEAN CORPUSCULAR HGB CONC 30 % (32-36); MEAN CORPUSCULAR VOLUME 83 fL (79.0-98.0); MONOCYTES # (AUTO) 0.9 K/uL (0.0-1.0); MONOCYTES % (AUTO) 5.2 % (1.7-9.3); NEUTROPHILS # (AUTO) 15.7 K/uL (1.8-7.7); NEUTROPHILS % (AUTO) 86.5 % (40.0-70.0); PLATELET COUNT (AUTO) 235 K/uL (130-430); RED BLOOD CELL COUNT(AUTO) 4.03 MIL/uL (4.2-6.2); RED CELL DISTRIBUTION WIDTH 20.1 % (9.0-15.0); WHITE BLOOD COUNT (AUTO) 18.1 K/uL (4.8-10.8)
[2020-04-26 06:53] LABS: ALBUMIN 1.6 g/dL (3.4-4.8); CALCIUM 8.4 mg/dL (8.4-11.0); CREATININE 0.35 mg/dL (0.55-1.30); PHOSPHORUS 3.3 mg/dL (2.7-4.5); POTASSIUM 3.9 mmol/L (3.5-5.1); TOTAL BILIRUBIN 0.6 mg/dL (0.0-1.0)
--- NOTE | 2020-04-26 07:30 | NUR ---
Received report to assume care of the patient. Pt intubated and comfortable on PRVC 24/90%/+8. No secretions to suction from mouth. 02 sats 94 %. HOB up. OGT tube in place and tolerating tube feeds without high residuals. Abd soft and non distended. Hernandez cath with yellow urine in bag. Left arm PICC in place with diprivan at 35 mcgs and morphine at 5 mcgs and pt is comfortable. ST on monitor and VSS.
--- NOTE | 2020-04-26 07:30 | NUR ---
CLOSING NOTE SBAR REPORT ENDORSED TO ONCOMING RN FOR CONTINUITY OF CARE.
[2020-04-26] MEDS: ALBUTEROL SULFATE 0.083% 2.5 MG/3 ML VIAL.NEB INH SCH ×4 (07:40→20:17)
[2020-04-26] MEDS: MORPHINE I.V. DRIP 100 ML IV PRN (08:16)
--- NOTE | 2020-04-26 08:40 | NUR ---
Chest tube drainage unit changed to a new unit due to unit being tipped over yesterday. Air leak noted.
[2020-04-26] MEDS: DOCUSATE SODIUM 100 MG/10 ML UDC PO SCH ×2 (09:00→20:20)
[2020-04-26] MEDS: MICAFUNGIN SODIUM 100 MG in D5W 100 ML IV SCH (09:16)
[2020-04-26] MEDS: DEXAMETHASONE SOD PHOSPHATE 10 MG/ML VIAL IVP SCH (09:17)
[2020-04-26] MEDS: ENOXAPARIN SODIUM 40 MG/0.4 ML SYRINGE SUBCUT SCH (09:17)
[2020-04-26] MEDS: FUROSEMIDE 20 MG/2 ML VIAL IVP SCH ×2 (09:18→20:20)
[2020-04-26] MEDS: FAMOTIDINE PF 20 MG/2 ML VIAL IVP SCH (09:20)
--- NOTE | 2020-04-26 14:40 | NUR ---
Dr. Lester in to see pt. Spoke with Rocio crisostomo on the phone for a long time via facetime in the room. Family also allowed to facetime with patient for about 2 hours.
--- NOTE | 2020-04-26 16:36 | NUR ---
Rocio Chan and pts in to see pt at the bedside.
--- NOTE | 2020-04-26 17:34 | NUR ---
Dr. Dawn in to see pt and spoke with pts daughter and pts at the bedside.
--- NOTE | 2020-04-26 19:15 | NUR ---
OPENING NOTE RECEIVED SBAR REPORT FROM OFF COMING RN FOR CONTINUITY OF CARE. PT LAYING IN BED SEDATED ON VENTILATOR. NO S/S OF ACUTE DISTRESS NOTED. MORPHINE GTT @ 5 MG/HR, DIPRIVAN GTT @ 35 MCG/KG/MIN. OG TUBE IN PLACE, VITAL HP INFUSING @ 50 ML/HR. OSMAN CATHETER IN PLACE AND DRAINING TO GRAVITY. CHEST TUBE IN PLACE, DRESSING IN PLACE. BED LOCKED AND IN LOWEST POSITION, SAFETY PRECAUTIONS IN PLACE.
[2020-04-27] VITALS (33 sets, daily range): BP systolic 95–124
[2020-04-27] MEDS: VANCOMYCIN HCL 1,000 MG in D5W 250 ML IV SCH ×2 (04:20→13:24)
[2020-04-27] MEDS ORDERED: METOCLOPRAMIDE HCL 10 MG/2 ML VIAL ONE ×2 (05:42→15:38)
[2020-04-27] MEDS: PIPERACILLIN/TAZO 4.5GM/DEX-IS 100 ML IV SCH ×3 (05:47→20:58)
[2020-04-27] MEDS: METOCLOPRAMIDE HCL 10 MG/2 ML VIAL IVP SCH ×3 (05:48→22:00)
--- NOTE | 2020-04-27 06:30 | NUR ---
TITRATION DIPRIVAN GTT TITRATED TO 30 MCG/KG/MIN PER PROTOCOL.
[2020-04-27 06:41] LABS: BASOPHILS % (AUTO) 0.3 % (0.0-2.0); EOSINOPHILS # (AUTO) 0.1 K/uL (0.0-0.4); EOSINOPHILS % (AUTO) 0.4 % (0.0-4.0); HEMATOCRIT 31.1 % (36-48); HEMOGLOBIN 9.6 g/dL (12.0-16.0); LYMPHOCYTES # (AUTO) 0.9 K/uL (1.0-5.5); LYMPHOCYTES % (AUTO) 6.4 % (20.5-51.5); MEAN CORPUSCULAR HEMOGLOBIN 26 pg (27-31); MEAN CORPUSCULAR HGB CONC 31 % (32-36); MEAN CORPUSCULAR VOLUME 83 fL (79.0-98.0); MONOCYTES # (AUTO) 0.8 K/uL (0.0-1.0); MONOCYTES % (AUTO) 5.4 % (1.7-9.3); NEUTROPHILS # (AUTO) 12.3 K/uL (1.8-7.7); NEUTROPHILS % (AUTO) 87.5 % (40.0-70.0); PLATELET COUNT (AUTO) 224 K/uL (130-430); RED BLOOD CELL COUNT(AUTO) 3.75 MIL/uL (4.2-6.2); RED CELL DISTRIBUTION WIDTH 19.9 % (9.0-15.0)
[2020-04-27 07:07] LABS: ALANINE AMINOTRANSFERASE 198 U/L (12-78); ALBUMIN 1.5 g/dL (3.4-4.8); ASPARTATE AMINOTRANSFERASE 112 U/L (10-37); CALCIUM 8.2 mg/dL (8.4-11.0); CHLORIDE 102 mmol/L (98-107); CREATININE 0.41 mg/dL (0.55-1.30); GLUCOSE 129 mg/dL (70-99); POTASSIUM 3.8 mmol/L (3.5-5.1); SODIUM SERUM 147 mmol/L (136-145); TOTAL BILIRUBIN 0.6 mg/dL (0.0-1.0); UREA NITROGEN, BLOOD 22 mg/dL (8-21)
--- NOTE | 2020-04-27 07:20 | NUR ---
CLOSING NOTE SBAR REPORT ENDORSED TO ONCOMING RN FOR CONTINUITY OF CARE.
[2020-04-27 07:57] LABS: GFR AFRICAN AMERICAN 206 mL/min (>90)
[2020-04-27 07:58] LABS: ANION GAP < 3 (5-15)
[2020-04-27] MEDS: DOCUSATE SODIUM 100 MG/10 ML UDC PO SCH ×2 (09:00→20:54)
[2020-04-27] MEDS: ENOXAPARIN SODIUM 40 MG/0.4 ML SYRINGE SUBCUT SCH (09:47)
[2020-04-27] MEDS: FAMOTIDINE PF 20 MG/2 ML VIAL IVP SCH (09:48)
[2020-04-27] MEDS: FUROSEMIDE 20 MG/2 ML VIAL IVP SCH (09:48)
[2020-04-27] MEDS: DEXAMETHASONE SOD PHOSPHATE 10 MG/ML VIAL IVP SCH (09:49)
[2020-04-27] MEDS: ALBUTEROL SULFATE 0.083% 2.5 MG/3 ML VIAL.NEB INH SCH ×4 (11:25→19:59)
[2020-04-27] MEDS: DESMOPRESSIN ACETATE 4 MCG/ML AMP IVP SCH ×2 (13:25→20:55)
[2020-04-27] MEDS: PROPOFOL DRIP 100 ML IV PRN ×2 (13:41→20:57)
[2020-04-27] MEDS: MORPHINE I.V. DRIP 100 ML IV PRN (18:19)
--- NOTE | 2020-04-27 19:15 | NUR ---
Opening note Received report from Rivas GAGNON.
--- NOTE | 2020-04-27 20:30 | NUR ---
RN Rounds Family using facetime with patient.
[2020-04-28] VITALS (36 sets, daily range): BP systolic 91–127
--- NOTE | 2020-04-28 00:15 | NUR ---
RN Rounds Quyen/paula care provided. New linens provided.
--- NOTE | 2020-04-28 01:40 | NUR ---
rt notes 0140 titrated FIO2 to 80%, pt saturation 94-95%, HR 76, tolerating changes. will continue to monitor pt. no resp distress at this time.
[2020-04-28] MEDS ORDERED: METOCLOPRAMIDE HCL 10 MG/2 ML VIAL ONE (04:59)
[2020-04-28] MEDS: PIPERACILLIN/TAZO 4.5GM/DEX-IS 100 ML IV SCH ×3 (05:03→21:46)
[2020-04-28] MEDS: METOCLOPRAMIDE HCL 10 MG/2 ML VIAL IVP SCH ×3 (05:04→21:46)
[2020-04-28] MEDS: PROPOFOL DRIP 100 ML IV PRN ×2 (05:06→10:56)
[2020-04-28 06:50] LABS: BASOPHILS # (AUTO) 0.1 K/uL (0.0-0.2); BASOPHILS % (AUTO) 0.5 % (0.0-2.0); EOSINOPHILS # (AUTO) 0.1 K/uL (0.0-0.4); EOSINOPHILS % (AUTO) 0.7 % (0.0-4.0); HEMOGLOBIN 9.5 g/dL (12.0-16.0); LYMPHOCYTES # (AUTO) 1.2 K/uL (1.0-5.5); LYMPHOCYTES % (AUTO) 11.4 % (20.5-51.5); MEAN CORPUSCULAR HEMOGLOBIN 26 pg (27-31); MEAN CORPUSCULAR HGB CONC 32 % (32-36); MEAN CORPUSCULAR VOLUME 82 fL (79.0-98.0); MONOCYTES # (AUTO) 0.7 K/uL (0.0-1.0); MONOCYTES % (AUTO) 6.2 % (1.7-9.3); NEUTROPHILS # (AUTO) 8.7 K/uL (1.8-7.7); NEUTROPHILS % (AUTO) 81.2 % (40.0-70.0); PLATELET COUNT (AUTO) 209 K/uL (130-430); RED BLOOD CELL COUNT(AUTO) 3.68 MIL/uL (4.2-6.2); RED CELL DISTRIBUTION WIDTH 19.6 % (9.0-15.0); WHITE BLOOD COUNT (AUTO) 10.7 K/uL (4.8-10.8)
--- NOTE | 2020-04-28 07:15 | NUR ---
Closing note Report given to Grisel GAGNON.
[2020-04-28 07:18] LABS: ALANINE AMINOTRANSFERASE 192 U/L (12-78); ALBUMIN 1.5 g/dL (3.4-4.8); ASPARTATE AMINOTRANSFERASE 117 U/L (10-37); CALCIUM 7.7 mg/dL (8.4-11.0); CHLORIDE 103 mmol/L (98-107); CREATININE 0.46 mg/dL (0.55-1.30); GLUCOSE 104 mg/dL (70-99); POTASSIUM 3.1 mmol/L (3.5-5.1); SODIUM SERUM 149 mmol/L (136-145); TOTAL BILIRUBIN 0.6 mg/dL (0.0-1.0); UREA NITROGEN, BLOOD 29 mg/dL (8-21)
[2020-04-28] MEDS: ALBUTEROL SULFATE 0.083% 2.5 MG/3 ML VIAL.NEB INH SCH ×4 (07:20→19:58)
--- NOTE | 2020-04-28 08:00 | NUR ---
RN NOTES STILL ORALLY INTUBATED TO VENT. SPO2 GOOD. PROPOFOL DRIP @ 30mcg/kg/min SINUS RHYTHM ON THE MONITOR. VITAL HP FEEDING @ 50 cc/hr
[2020-04-28 08:09] LABS: GFR AFRICAN AMERICAN 181 mL/min (>90)
[2020-04-28 08:12] LABS: ANION GAP < 3 (5-15)
--- NOTE | 2020-04-28 09:17 | NUR ---
Nutrition F/U RD reviewed pt's current EMR record including diet Hx, physician notes, nursing notes, pertinent labs/meds/procedures, care trends, and care activity. Admission Dx: Acute respiratory failure, possible pneumonia PMH: stage 4 metastatic breast CA per physician notes Pt also found w/ severe malnutrition per physician notes SARS-CoV-2 Ag (Rapid) Negative 04/13 SARS-CoV2 (PCR) Negative 04/13 & 04/15 Current Diet Order/Nutrition Support: Vital High Protein at 50 ml/hr, Free Water Flush: 200 ml Q6h via NGT x1 days Subjective Info: RD bedside visit deferred to conserve PPE as pt remains in ICU. RD spoke w/ RN Kaitlyn via phone, who stated pt tolerating TF Vital High Protein at 50 ml/hr (goal rate) and that propofol infusing at 16 ml/hr (422 kcal). Per EMR, pt w/ minimal residuals. No s/s intolerances per RN. Wt remains unchanged per EMR. Current TF regimen w/ propfol continues to be adequate and appropriate. Will adjust TF goal rate according to propofol infusion rate. +BM x 2 today. Pertinent Medications: morphine, piperacillin/tazobactam IV, decadron, KCl, COlace, reglan, pepcid, norepinephrine Pertinent Labs: BG 104 H, WBC 10.7 H (trending down), AST 117 H, ALT 192 H, ALP 387 H, ALB 1.5 L Skin Integrity Comment: Jamal scale: 11; No PIs noted; 4+ pitting edema BUE per pattern grader cutter Estimated Energy Expenditure (kcals/day) 1489 kcal/day (PSU d/t critical illness on vent support) NEW Estimated Protein Required (g/day) 80-133 gm/day (1.2-2 gm/kg ABW for CA, acute state, vent support, BMI < 30) Estimated Fluid Required (l/day) 1.5 L/day (1 ml/kcal/day for maintenance) Problem/Etiology/Signs/Symptoms Suboptimal nutritional intakes related to metabolic demands as evidenced by NPO status and inability to meet nutritional requirements. *improved w/ active EN support order Expected Outcomes/Goals - Monitor provision of nutrition support w/ goal of pt meeting at least 80% of estimated nutritional needs, labs trending WNL, normal GI function, and skin integrity/wt maintenance Dietitian Recommendations * Recommend continuing Vital High Protein at 50 ml/hr, Free Water Flush: 200 ml Q6h via NGT TF w/ propofol provides: 1622 kcal/day, 105 gm protein/day, and 1803 ml free water/day Meets: 109% of estimated protein needs and 79% of upper end of estimated protein needs * Will adjust TF goal rate according to propofol infusion rate. Follow Up High Risk: F/U in 2-3 days
[2020-04-28] MEDS: DESMOPRESSIN ACETATE 4 MCG/ML AMP IVP SCH ×2 (09:21→21:50)
[2020-04-28] MEDS: DOCUSATE SODIUM 100 MG/10 ML UDC PO SCH ×2 (09:21→21:45)
[2020-04-28] MEDS: acetaZOLAMIDE 250 MG TABLET (DIAMOX) PO SCH ×4 (09:22→21:46)
[2020-04-28] MEDS: DEXAMETHASONE SOD PHOSPHATE 10 MG/ML VIAL IVP SCH (09:22)
[2020-04-28] MEDS: FAMOTIDINE PF 20 MG/2 ML VIAL IVP SCH (09:22)
[2020-04-28] MEDS: ENOXAPARIN SODIUM 40 MG/0.4 ML SYRINGE SUBCUT SCH (09:23)
--- NOTE | 2020-04-28 09:26 | NUR ---
Dietitian Recommendations * Recommend continuing Vital High Protein at 50 ml/hr, Free Water Flush: 200 ml Q6h via NGT TF w/ propofol provides: 1622 kcal/day, 105 gm protein/day, and 1803 ml free water/day Meets: 109% of estimated protein needs and 79% of upper end of estimated protein needs * Will adjust TF goal rate according to propofol infusion rate. Please see Nutrition F/U for details. EP,RD
[2020-04-28] MEDS: KCL 20 mEq in 100 mL (PREMIX) 100 ML IV SCH ×2 (10:09→13:32)
[2020-04-28] MEDS: MORPHINE I.V. DRIP 100 ML IV PRN (10:12)
--- NOTE | 2020-04-28 11:28 | NUR ---
RT NOTES FIO2 to 0.90 due to low saturation. @1129 pt's saturation 91%. Will monitor pt.
--- NOTE | 2020-04-28 12:00 | NUR ---
rn notes Repositioned for comfort. Feeding well tolerated.
--- NOTE | 2020-04-28 17:30 | NUR ---
RN NOTES PM CARE DONE. MADE COMFORTABLE.
--- NOTE | 2020-04-28 18:00 | NUR ---
MD VISIT DR. GUO HERE TO SEE PATIENT.
--- NOTE | 2020-04-28 19:30 | NUR ---
PM ASSESSMENT REPORT RECEIVED FROM RODDY GAGNON. PT RECEIVED IN BED WITH EYES CLOSED, SEDATED. VSS, NO S/S OF ACUTE DISTRESS NOTED. PT INTUBATED, VENT SETTINGS: PC 30, R 24, FIO2 90%, PEEP 8. BROOKE PICC IN PLACE INFUSING NS TKO AND DIPRIVAN AND MS DRIP PER ORDERS. L PORT-A-CATH NOTED. OGT RUNNING TF PER ORDERS. OSMAN CATH DRAINING URINE TO GRAVITY. HOB ELEVATED, BED IN LOWEST POSITION, CALL LIGHT IN REACH. WILL CONTINUE TO MONITOR PT.
--- NOTE | 2020-04-28 22:45 | NUR ---
FAMILY UPDATE SPOKE WITH PTS AUDREY BLACKWOOD AT THIS TIME. UPDATES PROVIDED AND ALL QUESTIONS ANSWERED. IPAD PROVIDED FOR FAMILY FACETIME. WILL CONTINUE TO MONITOR PT.
[2020-04-29] VITALS (35 sets, daily range): BP systolic 94–160
[2020-04-29] MEDS: PROPOFOL DRIP 100 ML IV PRN ×2 (01:23→21:57)
[2020-04-29] MEDS: PIPERACILLIN/TAZO 4.5GM/DEX-IS 100 ML IV SCH ×3 (05:44→21:57)
[2020-04-29] MEDS: METOCLOPRAMIDE HCL 10 MG/2 ML VIAL IVP SCH ×3 (05:45→21:58)
--- NOTE | 2020-04-29 05:45 | NUR ---
Witness drip change this nurse Witnessed Bety GAGNON increase Diprivan drip to 35 mcg/kg/min
[2020-04-29] MEDS: MORPHINE I.V. DRIP 100 ML IV PRN ×2 (05:47→20:07)
[2020-04-29 06:45] LABS: BASOPHILS % (AUTO) 0.2 % (0.0-2.0); EOSINOPHILS % (AUTO) 0.2 % (0.0-4.0); HEMATOCRIT 34.5 % (36-48); HEMOGLOBIN 10.8 g/dL (12.0-16.0); LYMPHOCYTES % (AUTO) 9.1 % (20.5-51.5); MEAN CORPUSCULAR HEMOGLOBIN 26 pg (27-31); MEAN CORPUSCULAR HGB CONC 31 % (32-36); MEAN CORPUSCULAR VOLUME 82 fL (79.0-98.0); MONOCYTES # (AUTO) 0.8 K/uL (0.0-1.0); MONOCYTES % (AUTO) 7.1 % (1.7-9.3); NEUTROPHILS # (AUTO) 9.6 K/uL (1.8-7.7); NEUTROPHILS % (AUTO) 83.4 % (40.0-70.0); PLATELET COUNT (AUTO) 232 K/uL (130-430); RED BLOOD CELL COUNT(AUTO) 4.22 MIL/uL (4.2-6.2); RED CELL DISTRIBUTION WIDTH 20.5 % (9.0-15.0); WHITE BLOOD COUNT (AUTO) 11.5 K/uL (4.8-10.8)
[2020-04-29 07:23] LABS: ALBUMIN 1.7 g/dL (3.4-4.8); CALCIUM 8.2 mg/dL (8.4-11.0); CREATININE 0.43 mg/dL (0.55-1.30); POTASSIUM 3.1 mmol/L (3.5-5.1); TOTAL BILIRUBIN 0.8 mg/dL (0.0-1.0)
[2020-04-29] MEDS: ALBUTEROL SULFATE 0.083% 2.5 MG/3 ML VIAL.NEB INH SCH ×4 (07:39→19:23)
[2020-04-29] MEDS: FAMOTIDINE PF 20 MG/2 ML VIAL IVP SCH (08:55)
[2020-04-29] MEDS: DEXAMETHASONE SOD PHOSPHATE 10 MG/ML VIAL IVP SCH (08:56)
[2020-04-29] MEDS: DESMOPRESSIN ACETATE 4 MCG/ML AMP IVP SCH ×2 (08:57→21:19)
[2020-04-29] MEDS: acetaZOLAMIDE 250 MG TABLET (DIAMOX) PO SCH ×4 (08:59→21:20)
[2020-04-29] MEDS: ENOXAPARIN SODIUM 40 MG/0.4 ML SYRINGE SUBCUT SCH (09:00)
[2020-04-29] MEDS: DOCUSATE SODIUM 100 MG/10 ML UDC PO SCH ×2 (09:15→21:00)
--- NOTE | 2020-04-29 09:50 | NUR ---
KALIN NOTES CRITICAL ABG RESULTS RELAYED TO DR. TIM, WITH ORDERS. Addendum: 04/30/20 at 0207 by Yessenia Peterson RN WRONG TIME ENTRY
[2020-04-29] MEDS ORDERED: POTASSIUM CHLORIDE 20 MEQ/PKT PACKET NG ONE (10:45)
--- NOTE | 2020-04-29 11:17 | NUR ---
Called Dr. Lopez with a consult,spoke with Janice from doctors office
--- NOTE | 2020-04-29 16:05 | NUR ---
TITRATED FIO2 DOWN TO 90%
--- NOTE | 2020-04-29 16:20 | NUR ---
RN NOTES FAMILY UPDATED ON PATIENT PRESENT CONDITION.
--- NOTE | 2020-04-29 21:15 | NUR ---
RN NOTES PATIENT NOTED TO BE DESATURATING, SPO2 80s. AMBU BAGGING BY RESP THERAPIST. REQUESTED ABG.
--- NOTE | 2020-04-29 21:30 | NUR ---
RT NOTES Called to bedside due to change in pt condition. Found pt w/ saturation in the low 70s, pt gasping. FIO2 to 100%, saturation did not improve. ABG drawn. Pt was bagged with 100% O2 via ambubag to ETT for about 7 minutes, no resistance noted, minimal improvement noted. @2152 Dr Lester ordered vent settings to rate of 28, PEEP to 12. Will monitor pt.
--- NOTE | 2020-04-29 21:50 | NUR ---
RN NOTES CRITICAL ABG RESULTS RELAYED TO DR. TIM, WITH ORDERS CARRIED OUT.
--- NOTE | 2020-04-29 23:20 | NUR ---
RN NOTES DR. GUO CALLED AND UPDATED ON PATIENT CONDITION, WITH ORDERS. SPOKE TO THE FAMILY.
--- NOTE | 2020-04-29 23:40 | NUR ---
MD CONSULT DR GALE CALLED FOR COSULT. RE: TACHYCARDIA
[2020-04-30] VITALS: BP_SYST 143
--- NOTE | 2020-04-30 | NUR ---
RN NOTES FAMILY AT BEDSIDE.
[2020-04-30 01:00] VITALS: BP_SYST 176
[2020-04-30 01:47] VITALS: BP_SYST 145
[2020-04-30 02:00] VITALS: BP_SYST 95
[2020-04-30 03:00] VITALS: BP_SYST 131
--- NOTE | 2020-04-30 04:00 | NUR ---
RN NOTES SINUS JOSE AT THIS TIME, SPOKE TO FAMILY ABOUT CODE STATUS.
--- NOTE | 2020-04-30 04:15 | NUR ---
SPOKE TO DR. GUO RE: FAMILY DECISION FOR DNR/COMFORT MEASURES ONLY.
--- NOTE | 2020-04-30 04:20 | NUR ---
RN NOTES CUT ROLL MACHINE OPERATOR SHOWS ASYSTOLE.
--- NOTE | 2020-04-30 04:30 | NUR ---
DR. BATISTA HERE TO PRONOUNCED PATIENT.
--- NOTE | 2020-04-30 04:45 | NUR ---
RN NOTES CORONERS AND [facility] NOTIFIED.
--- NOTE | 2020-04-30 05:30 | NUR ---
POST MORTEM CARE DONE.
--- NOTE | 2020-04-30 10:55 | NUR ---
SS notes/Body hold: SWEEPER OPERATOR [employer]IGHWAYS phoned dtr, Rocio @ [phone]. Per Rocio, the family has not made mortuary arrangements yet but are calling places. Rocio is aware pt still in ICU. Rocio will update SS when decision has been made. Addendum: 04/30/20 at 1219 by Manda CORBIN CM received a call from [facility] stating the family has picked [place] [facility]. SWEEPER OPERATOR HIGHWAYS [facility] and spoke with Isaias who stated the family will sign consents today and will contact housekeeping assistant for ETA on hot die picker. SS will remain available.
== END 2020-04-30 04:35 | disposition expired | DRG 870 ==
LOC: SED 13:43 → SIC 15:27
PROVIDERS: ADMIT Internal Medicine; ATTEND Internal Medicine
PROC: 5A1955Z Respiratory Ventilation, Greater than 96 Consecutive Hours (ICD-10-PCS; principal; 2020-04-14)
PROC: 0BH17EZ Insertion of Endotracheal Airway into Trachea, Via Natural or Artificial Opening (ICD-10-PCS; 2020-04-14)
PROC: 0W9B00Z Drainage of Left Pleural Cavity with Drainage Device, Open Approach (ICD-10-PCS; 2020-04-24)
DX: A41.9 Sepsis, unspecified organism (principal); J18.9 Pneumonia, unspecified organism; J96.01 Acute respiratory failure with hypoxia; E43 Unspecified severe protein-calorie malnutrition; E87.2 Acidosis; E87.0 Hyperosmolality and hypernatremia; C78.7 Secondary malignant neoplasm of liver and intrahepatic bile duct; C50.919 Malignant neoplasm of unspecified site of unspecified female breast; Z20.828 Contact with and (suspected) exposure to other viral communicable diseases; D64.9 Anemia, unspecified; F19.10 Other psychoactive substance abuse, uncomplicated; R13.10 Dysphagia, unspecified; Z85.3 Personal history of malignant neoplasm of breast; Z90.10 Acquired absence of unspecified breast and nipple; Z78.9 Other specified health status; Z68.26 Body mass index [BMI] 26.0-26.9, adult
CPT/HCPCS: 36415; 36600; 71045; 76700-TC; 80048; 80053; 80074; 80076; 80202-TC; 81000-TC; 82550-TC; 82553-TC; 82728; 82803-TC; 83605; 83615-TC; 83735-TC; 83880; 84100-TC; 84443-TC; 84484; 85025; 85379; 85384-TC; 85610-TC; 85730-TC; 86140; 86710; 86886; 86900; 86901; 87040-TC; 87070-TC; 87081; 87086; 87205-TC; 93005; 93306; 93970; 94002; 94003; 94640; 96365; 99291; J0456; J0696; J1100; J1650; J1940; J2248; J2270; J2543; J2597; J2704; J2765; J3370; J3480; J3490; J7050; J7060; J7613; U0003